=== PATIENT | male | born 1950 | race Caucasian/White ===

== ENCOUNTER 2017-12-13 08:00 | Outpatient (CLI) | payer MEDICARE, OTHER ==
[2017-12-13 18:58] LABS: BASOPHILS % (AUTO) 0.5 %; EOSINOPHILS # (AUTO) 0.6 10^3/uL (0.0-0.7); EOSINOPHILS % (AUTO) 10.8 %; HGB - HEMOGLOBIN 13.7 g/dL (14.0-18.0); LYMPHOCYTES # (AUTO) 0.9 10^3/uL (1.5-3.5); LYMPHOCYTES % (AUTO) 16.5 %; MEAN CORPUSCULAR HEMOGLOBIN 29.1 pg (27.0-31.0); MEAN CORPUSCULAR HGB CONC 32.8 g/dL (32.0-36.0); MEAN CORPUSCULAR VOLUME 88.7 fL (80.0-94.0); MEAN PLATELET VOLUME 9.5 fL (7.4-11.4); MONOCYTES # (AUTO) 0.5 10^3/uL (0.0-1.0); MONOCYTES % (AUTO) 9.1 %; NEUTROPHILS # (AUTO) 3.5 10^3/uL (1.5-6.6); NEUTROPHILS % (AUTO) 63.1 %; PLT - PLATELET COUNT 210 10^3/uL (130-450); RED BLOOD COUNT 4.69 10^6/uL (4.70-6.10); RED CELL DISTRIBUTION WIDTH 14.3 % (12.0-15.0); WHITE BLOOD COUNT 5.6 x10^3/uL (4.8-10.8)
[2017-12-13 19:07] LABS: ALBUMIN 3.7 g/dL (3.2-5.5); BILIRUBIN,DIRECT 0.1 mg/dL (0.1-0.5); BILIRUBIN,TOTAL 0.9 mg/dL (0.2-1.0); TOTAL PROTEIN 7.4 g/dL (6.7-8.2)
== END 2017-12-13 08:01 | disposition home or self-care (01) ==
LOC: LAB.WCP 08:00
PROVIDERS: ATTEND Family Medicine
DX: E03.9 Hypothyroidism, unspecified (principal); R97.20 Elevated prostate specific antigen [PSA]
CPT/HCPCS: 36415; 80076; 81599; 84153; 84443; 85025

== ENCOUNTER 2019-02-05 08:00 | Outpatient (CLI) | payer MEDICARE, OTHER ==
[2019-02-05 14:10] LABS: CALCIUM 9.2 mg/dL (8.5-10.3)
[2019-02-05 14:30] LABS: HB2 TOTAL 14.7 g/dL; HEMOGLOBIN A1C 0.59 g/dL; HEMOGLOBIN A1C % 5.8 % (4.6-6.2)
== END 2019-02-05 23:59 | disposition home or self-care (01) ==
LOC: LAB.WCP 08:00
PROVIDERS: ATTEND Family Medicine
DX: R73.01 Impaired fasting glucose (principal); R97.20 Elevated prostate specific antigen [PSA]
CPT/HCPCS: 36415; 80048; 83036; 84153

== ENCOUNTER 2019-03-04 11:50 | Outpatient (CLI) | payer MEDICARE, OTHER ==
--- NOTE | 2019-03-04 13:14 | XRAY Report ---
Reason: COUGH Procedure Date: 03/04/2019 Accession Number: [id number] / [id number] Procedure: WCP - Chest 2 View X-Ray CPT Code: 18172 FULL RESULT: EXAM: CHEST RADIOGRAPHY EXAM DATE: 03/04/2019 12:04 PM. CLINICAL HISTORY: Cough. COMPARISON: None. TECHNIQUE: 2 views. FINDINGS: Lungs/Pleura: No focal opacities evident. No pleural effusion. No pneumothorax. Flattened diaphragms with prominent lung volumes, possibly obstructive lung disease. Mediastinum: Heart and mediastinal contours are unremarkable. Other: The bones are qualitatively osteopenic; this limits evaluation for underlying fractures or masses. IMPRESSION: No acute airspace disease, likely COPD. RADIA
== END 2019-03-04 11:51 | disposition home or self-care (01) ==
LOC: DI.WCP 11:50
PROVIDERS: ATTEND Family Medicine
DX: R05 Cough (principal); Z51.81 Encounter for therapeutic drug level monitoring; R53.83 Other fatigue
CPT/HCPCS: 36415; 71046; 80053; 84439; 84443; 85025

== ENCOUNTER 2019-03-04 12:28 | Outpatient (CLI) | payer MEDICARE, OTHER ==
[2019-03-04 19:40] LABS: BASOPHILS % (AUTO) 0.5 %; EOSINOPHILS # (AUTO) 0.6 10^3/uL (0.0-0.7); EOSINOPHILS % (AUTO) 13.7 %; HGB - HEMOGLOBIN 13.2 g/dL (14.0-18.0); LYMPHOCYTES # (AUTO) 0.8 10^3/uL (1.5-3.5); MEAN CORPUSCULAR HEMOGLOBIN 28.9 pg (27.0-31.0); MEAN CORPUSCULAR VOLUME 87.6 fL (80.0-94.0); MEAN PLATELET VOLUME 9.9 fL (7.4-11.4); MONOCYTES # (AUTO) 0.6 10^3/uL (0.0-1.0); MONOCYTES % (AUTO) 15.9 %; NEUTROPHILS % (AUTO) 50.9 %; PLT - PLATELET COUNT 189 10^3/uL (130-450); RED BLOOD COUNT 4.55 10^6/uL (4.70-6.10); RED CELL DISTRIBUTION WIDTH 14.9 % (12.0-15.0)
[2019-03-04 20:24] LABS: ALBUMIN 3.7 g/dL (3.2-5.5); ALBUMIN/GLOBULIN RATIO 1.1 (1.0-2.2); BILIRUBIN,TOTAL 0.6 mg/dL (0.2-1.0); CREATININE 1.1 mg/dL (0.6-1.2); TOTAL PROTEIN 7.1 g/dL (6.7-8.2)
[2019-03-04 22:12] LABS: FREE T4 (FREE THYROXINE) 0.72 ng/dL (0.58-1.64)
== END 2019-03-04 12:29 | disposition home or self-care (01) ==
LOC: LAB.WCP 12:28
PROVIDERS: ATTEND Family Medicine
DX: Z51.12 Encounter for antineoplastic immunotherapy (principal); R53.83 Other fatigue; R05 Cough
CPT/HCPCS: 36415; 80053; 84439; 84443; 85025

== ENCOUNTER 2019-03-25 08:00 | Outpatient (CLI) | payer MEDICARE, OTHER | END 2019-03-25 08:01 | disposition home or self-care (01) | LOC: LAB.WCP 08:00 | PROVIDERS: ATTEND Family Medicine | DX: E03.9 Hypothyroidism, unspecified (principal) | CPT/HCPCS: 36415; 84443 ==

== ENCOUNTER 2019-04-15 14:33 | Outpatient (CLI) | payer MEDICARE, OTHER ==
--- NOTE | 2019-04-16 09:51 | CT Report ---
Reason: OROPHARYNGEAL SQUAMOUS CELL CA Procedure Date: 04/15/2019 Accession Number: [id number] / [id number] Procedure: CT - CHEST WO CPT Code: FULL RESULT: EXAM: CT CHEST EXAM DATE: 04/15/2019 02:44 PM. CLINICAL HISTORY: Oropharyngeal squamous cell CA. COMPARISONS: ABDOMEN/PELVIS W/ 03/11/2019 1:05 PM CHEST W/ 03/11/2019 1:05 PM NECK SOFT TISSUE W/ 03/11/2019 1:[address] NECK SOFT TISS W CONT 02/11/2019 12:[address] NECK SOFT TISS W CONT 08/27/2018 11:13 AM PET/CT SKULL BASE TO MID THIGH 07/27/2016 8:35 AM. TECHNIQUE: Routine helical CT imaging was performed through the chest. IV contrast: None. Reconstructions: Coronal and sagittal. In accordance with CT protocol optimization, one or more of the following dose reduction techniques were utilized for this exam: automated exposure control, adjustment of mA and/or KV based on patient size, or use of iterative reconstructive technique. FINDINGS: Thoracic inlet: This area is carefully reviewed and compared to extensive prior imaging as listed above with additional discussion with the neuroradiologist familiar with the patient's imaging history. I am made aware that the patient has been treated at the [facility] and extensively discussed with ENT. The patient is status post right radical neck dissection. On current imaging pretracheal/level 4 and 6 lymph nodes as seen on coronal images 21 and 22 of series 6 are morphologically essentially unchanged dating back to 2016 where the same area was not FDG avid on PET CT. While there is no significant interval change and the appearance may be treatment related, this area is morphologically abnormal and deserves continued attention on followup. The largest lymph node in the area measures up to 1.1 cm in short axis as seen on image 25 series 6. Lungs/Pleura: Previously noted right perifissural nodule is stable, approximately 4 mm on image 32 series 4. There is new nodular consolidation at the left lung base, presumably acute airspace disease. No pleural effusion or pneumothorax. Scarring at the extreme lung apices is presumably related to radiation and unchanged. Mediastinum: Mediastinal lymph nodes have increased in prominence, for example a pretracheal node now measures 0.7 cm in short axis compared to 0.5 cm previously. Similarly, the subcarinal lymph node now measures 2.2 x 1.6 cm compared to 1.9 x 1.2 cm as seen on image 33 series 6 and compared in similar fashion. There is no pericardial effusion. Bones: No aggressive osseous lesions are seen. Visualized Abdomen: Stable hepatic cyst. Other: None. IMPRESSION: New nodular consolidation at the left lung base with interval increase in prominence of mediastinal lymph nodes. Long-term stable prominence of lymph nodes at the thoracic inlet as discussed in detail above. RADIA The call report notification system was initiated by Dr. Derrell Brady at 09:43 AM on 04/16/2019. The above call report findings were discussed with Farideh Desai by Dr. Derrell Brady at 09:46 AM on 04/16/2019.
== END 2019-04-15 14:34 | disposition home or self-care (01) ==
LOC: DI 14:33
PROVIDERS: ATTEND Nurse Practitioner Adult Health
DX: C10.9 Malignant neoplasm of oropharynx, unspecified (principal)
CPT/HCPCS: 71250

== ENCOUNTER 2019-04-16 13:39 | Outpatient (CLI) | payer MEDICARE, OTHER | END 2019-04-16 13:40 | disposition home or self-care (01) | LOC: DI 13:39 | PROVIDERS: ATTEND Nurse Practitioner Adult Health | DX: C14.0 Malignant neoplasm of pharynx, unspecified (principal); R13.10 Dysphagia, unspecified; R06.02 Shortness of breath; R06.00 Dyspnea, unspecified | CPT/HCPCS: 36415; 83880; 93306 ==

== ENCOUNTER 2019-05-15 08:47 | Outpatient (CLI) | payer MEDICARE, OTHER | END 2019-05-15 23:59 | disposition home or self-care (01) | LOC: LAB.WCP 08:47 | PROVIDERS: ATTEND Family Medicine | DX: E29.1 Testicular hypofunction (principal) | CPT/HCPCS: 36415; 84403 ==

== ENCOUNTER 2019-07-22 09:36 | Outpatient (CLI) | payer MEDICARE, OTHER ==
--- NOTE | 2019-07-22 19:34 | CONSULTATION NOTE ---
Palliative Care Consultation - Referral Referring Provider: Dr. Kyrie Moss Time of Visit: 3953-4302 [address]erral setting: [facility] Referral Reason: Recurrent oropharyngeal CA/Goals of Care/Pal Care - Information Sources Records reviewed: Previous records reviewed History/Review of Systems obtained from: Patient, Family ( Hina present for visit) Exam limitations: No limitations - History of Present Illness Brief History of Present Illness: This is a 69-year-old gentleman who was originally diagnosed with oropharyngeal cancer of an unknown primary in 1997, received chemotherapy and concurrent radiation and was on surveillance until recurrence in late 2016. He was found to have a new lesion on the posterior pharynx confirmed to be squamous cell carcinoma. He was told he was not a candidate for further resection or radiation or pro time therapy. He was seen down to [facility], and was started on nivolumab. He had maintained fairly steady and stable disease until his last imaging in April, which showed new nodular consolidation at left base and some increase in mediastinal nodes. Patient's complications have been increased difficulty with oral secretions, and causing him fairly acute episodes of compromised airway. He has been seeing Dr. Kan in ENT, for ongoing debridement. Patient side effects of the his nivolumab have been with a skin rash, he has been on a prednisone taper, but with recurrence of pruritus and rash will restart at 20 mg for 1 week and continue decreasing next week at 15 mg. He has just met with the oncologist. Patient is dependent on PEG tube, does 6 bolus feedings a day as well as fluids. Patient appears quite thin, though reports he is remained fairly weight neutral for the last several months. Patient symptom burden is impacted by his anxiety regarding recurrent airway obstruction, does have some fatigue, denies any pain. Reports mild cognitive and memory issues, but is impacted in the context he needs to continue to work and has multiple financial stressors. These actually stem from his original treatment back in the late , and his 's recent health issues with stage III lung cancer herself. Patient's other past medical history is his BPH, he has a history of melanoma of the right ear, hypothyroidism, and recurrent thrush. 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 Support System: Patient and his have been 43 years this September, they have 2 children and 8 grandchildren, unfortunately they are located in [place] and [place]. They have been weighing consideration regarding moving closer, though do like the weather of [facility]. Patient also has returned to work, this is related to financial stressors. Patient was 22 years in the [employer] and 21 years with [employer]. He currently works at [employer] and has a fairly long commute. His herself is undergone cancer treatment, for stage III lung cancer at [facility], she is coming on four years reports her health is stable though she has multiple stressors coming out of the treatment as well. Family History - Family History Family History: Mother: , Father: Medications/Allergies - Medications Home Medications: Ambulatory Orders Medication Instructions Recorded Confirmed Alfuzosin HCl [Alfuzosin HCl ER] 10 mg PO DAILY 01/07/19 07/22/19 Atorvastatin [Lipitor] 20 mg ORAL DAILY 01/07/19 07/22/19 Levothyroxine Sodium [Synthroid] 100 mcg PO DAILY 01/07/19 07/22/19 Omeprazole 20 mg PO DAILY 01/07/19 07/22/19 Albuterol Sulfate [Proair Hfa 1 - 2 puffs PO Q4HR PRN 03/11/19 07/22/19 Inhaler] Nystatin 100,000 unit PO DAILY 06/15/19 07/22/19 Prednisone 20 tab PO DAILY 06/15/19 07/22/19 - Allergies Allergies/Adverse Reactions: Allergies Allergy/AdvReac Type Severity Reaction Status Date / Time codeine [Codeine] Allergy Mild Rash Verified 07/22/19 09:13 Review of Systems - Constitutional Constitutional: reports: Fatigue, Weight stable. denies: Fever, Chills - Ears, Nose & Throat Ears, Nose & Throat: reports: Hearing loss (worsening), Tinnitus, Sore throat (persistant discomfort since surgery), Hoarseness - Cardiovascular Cardiovascular: reports: Exertional dyspnea, Decr. exercise tolerance - Respiratory Respiratory: reports: Cough, Sputum production (to start neb with saline/going every two weeks to ENT for "debriding" of dried secretions), SOB with exertion. denies: SOB at rest - Gastrointestinal Gastrointestinal: reports: Other (TF with blended food/formula and water). denies: Constipation, Nausea - Genitourinary Genitourinary: reports: Dysuria (yesterday but resovled today), Urgency (recent development), Incontinence - Musculoskeletal Musculoskeletal: reports: Stiffness, Muscle weakness - Integumentary Integumentary: reports: Rash, Pruritis (had improved; recent flare on pred taper restarted at 20 mg), Dryness - Neurological Neurological: reports: General weakness, Memory problems (worsening STM) - Psychiatric Psychiatric: denies: Depression, Anxiety - Hematologic/Lymphatic Hematologic/Lymphatic: reports: Anemia (mild). denies: Recurrent infections - All Other Systems All Other Systems: reports: Reviewed and negative Physical Exam - Physical Exam General Appearance: positive: No acute distress, Alert Eyes Bilateral: positive: Normal inspection ENT: positive: No signs of dehydration, Other (no s/s candidiasis). negative: Pharyngeal erythema, Oral lesions Neck: positive: Trachea midline, Other (scarred right neck disection) Cardiovascular: positive: Regular rate & rhythm Respiratory: positive: No respiratory distress, Diminished in bases. negative: Wheezes Abdomen: positive: Soft, Nml bowel sounds Skin: positive: Pallor, Dryness Extremities: positive: No pedal edema Neurologic/Psychiatric: positive: Oriented x3, Mood/affect nml, Slurred/abnml speech (related to surgical scarring; reports fluctuates) Palliative Care - POLST Patient has POLST: No POLST Status: Full Code Pain: Location (mild residual in area of surgery; no medication needed at this time describes as "discomfort") Tiredness/Fatigue: Mild (1-3) Drowsiness/Sedation: None Nausea: None Depression: None Anxiety: None, Comment (does not have baseline anxiety; though worries about recurrent airway obstruction) Dyspnea: Moderate (4-6) Anorexia: None Sleep: Sleeps well Constipation: No Feelings of wellbeing/Perceived Quality of Life: Good, Acceptable, No change Performance Status: Patient does have fatigue and some activity tolerance, does pace himself. He is able to continue to drive and work. He attends to all his ADLs. - Palliative Care Discussion: Patient is quite pragmatic, denies any depression or anxiety in his approach or living with his cancer. This is actually quite exasperating to his , she reports she is his voice, often he cannot talk because it is too much effort or his voice is not working. She also feels his forgetfulness and his difficulty with hearing often impacts his interpretation of what is shared with them. Today he is quite conversant and able to engage and speak his own thoughts. She does feel overwhelmingly responsible regarding tracking everything, and overseeing his care. She has been quite frustrated with her interaction with the [employer] system, and is weighing benefits and burdens of returning to [facility]. Though this is quite burdensome and travel and time. They do see Dr. Mcdonnell from [facility] as central provider, they have met Dr. Nash and are considering continuing with him as local support, and do want to continue with palliative care no matter which direction they choose. Patient is off Saturday through Saturday, and they try to schedule their appointments accordingly. Patient and do understand patient's treatment is palliative in nature, have not been given any specifics regarding prognosis, but are very much interested in further discussion regarding goals of care and advanced care planning. was not aware that they do have a D POA both for medical care and financial on file, was given copy. This was completed in 1997, was done when they were in [place]. Counseling provided though regarding given the seriousness of his illness, would be important to further define what is most important, priorities, and document decisions around these issues. We did go over the POLST, given patient's high risk for obstruction secondary secretions, this does make this somewhat complicated. There will need to be some nuances discussed in the context of this. We reviewed the multiple stressors they are currently experiencing, as well as resources available and directions to explore to meet some of their needs. Results - Lab Results Lab results reviewed: Yes Impression and Recommendations - Palliative Care Impression: This is a stephenie 69-year-old gentleman who unfortunately has recurrent oral pharyngeal cancer, squamous cell. He is currently receiving nivolumab immunotherapy, with fairly good response though concerned about recent progression. He does have severe dysphasia, difficulty with oral secretions and recurrent obstructive symptoms, as well is dependent on PEG tube. Patient's symptom burden is actually really low, they are experiencing multiple stressors particularly around finances. They do understand treatment is palliative in nature, and interested in further defining goals of care. Palliative care to provide support for ongoing pain and symptom management and anticipatory guidance. Recommendations/Counseling Done: 1. Compromised airway with recurrent crusting. Patient has been prescribed nebulizer with normal saline for moisturizing. They have had trouble obtaining prescription, discussed most likely insurance not to pay for the normal saline ampules, as well as concern related to Medicare rules for nebulizers. Patient does use intermittent albuterol, can order nebulized and get machine ordered and supplement with normal saline ampules. Palliative care team explored various options and presented to , Instructed to contact office if needs further assistance. 2. Dysuria. Patient does have intermittent and ongoing issues regarding BPH, did recommend follow-up with urologist as has been a while. Patient does have an elevated PSA on record. Patient denies any dysuria today, though recommended to contact PCP or palliative care [employer] for [employer] as has not establishe with new PCP, if not improved. Counseling provided regarding management of intermittent incontinence. 3. Anxiety. This is multifactorial in origin, including regarding care team, financial stressors, treatment plan and ongoing psychosocial stressors. Patient has seen multiple oncologist, multiple PCPs, is finding frustration with care fragmentation and worried about communication. Counseling provided regarding normalizing feelings of grief and loss, problem solving regarding frustrations of managing medical team, as well as referral to financial aid officer/counselor to provide support regarding concerns and questions of billing. 4. Advanced care planning. Patient does have a fairly extensive document from original 1998 diagnosis. We did discuss in the context of his current condition, treatment palliative in nature, and wanting to be more proactive regarding defining goals of care. Provided several examples of advanced care planning documents, reviewed intent and form of POLST. Counseling provided regarding ongoing communication regarding this, could particularly since has been helping him navigate with decision-making, she would like more information regarding his priorities and feelings about what is acceptable or not acceptable treatment in the future. Counseling provided regarding the role of palliative care, as well as setting up rapport. Time Spent: 60 minutes with greater than 50% of this done in counseling, coordination of care, and anticipatory guidance. Plan for follow-up in 2 weeks, and then as indicated.
== END 2019-07-22 09:37 | disposition home or self-care (01) ==
LOC: PC 09:36
PROVIDERS: ATTEND Nurse Practitioner Adult Health
DX: Z51.5 Encounter for palliative care (principal); C14.0 Malignant neoplasm of pharynx, unspecified; R07.0 Pain in throat; L27.0 Generalized skin eruption due to drugs and medicaments taken internally; L29.9 Pruritus, unspecified; T45.1X5A Adverse effect of antineoplastic and immunosuppressive drugs, initial encounter; Z93.1 Gastrostomy status; F41.9 Anxiety disorder, unspecified; R53.83 Other fatigue; G31.84 Mild cognitive impairment of uncertain or unknown etiology; R47.02 Dysphasia; J98.8 Other specified respiratory disorders; R30.0 Dysuria; J44.9 Chronic obstructive pulmonary disease, unspecified; E03.9 Hypothyroidism, unspecified; K21.9 Gastro-esophageal reflux disease without esophagitis; N40.1 Benign prostatic hyperplasia with lower urinary tract symptoms; N39.498 Other specified urinary incontinence; R33.8 Other retention of urine; R35.1 Nocturia; R39.15 Urgency of urination; H91.90 Unspecified hearing loss, unspecified ear; H93.19 Tinnitus, unspecified ear; Z85.820 Personal history of malignant melanoma of skin; Z79.51 Long term (current) use of inhaled steroids; Z79.52 Long term (current) use of systemic steroids
CPT/HCPCS: 99205

== ENCOUNTER 2019-07-29 11:05 | Outpatient (CLI) | payer MEDICARE, OTHER ==
--- NOTE | 2019-07-29 19:40 | CONSULTATION NOTE ---
Palliative Care Follow Up - Referral Referring Provider: Dr. Duke Nash oncology/Dr. 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 His original diagnosis was actually an oropharyngeal cancer with an unknown primary 1998, for which she received chemotherapy and concurrent radiation. He is currently on nivolumab every 4 weeks, and is due for restaging scans in the next couple weeks. He is managed by [facility], Dr. Susanna Mcdonnell, and is trying to receive some of his therapy more locally close to home. Patient's care is complicated by the difficulty he has with oral secretions, which has caused him in the last 4 months episodes of compromised airway. These have improved dramatically with the implementation of regular oral suctioning, And regular visits with Dr. Kan ENT for ongoing debridement. Reports cough is improved dramatically, he is not accumulating secretions in the back of his thr oat, he denies any increase in wheezing or difficulty with breathing. They have not obtained the nebulizer for moisturizing, his has been concerned as he is not using humidifier. Patient feels like overall he is happy with his current condition regarding management of his airway. Patient's perception is he is doing much better, he is doing fairly well as he is independent in his own care, has a PEG tube as he has severe dyshagia, and continues to work several days a week. Hina his , is very distressed and anxious, worried about patient's compliance and risk for airway obstruction, and requested to meet again with palliative care to discuss and address her concerns and facilitate further conversation regarding this. 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 Social History - Living Situation Living arrangement: At home Living Situation: With spouse/s.o. Support System: Patient is have been 43 years, they have 2 children though they are not close by. They have 1 daughter who is a nurse, and relies on for significant amount of information. They have a significant financial stressors, his is undergoing significant health problems related to her self that adds to the complexity of the situation. She would like to move closer to her children, but feels overwhelmed and unable to prepare the house to sell if needed. Medications/Allergies - Medications Home Medications: Ambulatory Orders Medication Instructions Recorded Confirmed Alfuzosin HCl [Alfuzosin HCl ER] 10 mg PO DAILY 01/07/19 07/29/19 Atorvastatin [Lipitor] 20 mg ORAL DAILY 01/07/19 07/29/19 Levothyroxine Sodium [Synthroid] 100 mcg PO DAILY 01/07/19 07/29/19 Omeprazole 20 mg PO DAILY 01/07/19 07/29/19 Albuterol Sulfate [Proair Hfa 1 - 2 puffs PO Q4HR PRN 03/11/19 07/29/19 Inhaler] Nystatin 100,000 unit PO DAILY 06/15/19 07/29/19 Prednisone 15 tab PO DAILY 06/15/19 07/29/19 Guaifenesin [Tussin] 5 ml PO Q4HR PRN 07/29/19 07/29/19 - Allergies Allergies/Adverse Reactions: Allergies Allergy/AdvReac Type Severity Reaction Status Date / Time codeine [Codeine] Allergy Mild Rash Verified 07/22/19 09:13 Review of Systems - Constitutional Constitutional: reports: Fatigue, Weight stable. denies: Fever, Chills - Ears, Nose & Throat Ears, Nose & Throat: reports: Hearing loss, Tinnitus, Postnasal drainage, Sore throat, Mouth lesions, Dental decay, Dry mouth - Cardiovascular Cardiovascular: reports: Decr. exercise tolerance. denies: Chest pain - Respiratory Respiratory: reports: Cough (improved; occasional), Wheezing (intermittent but improved), SOB with exertion. denies: SOB at rest - Gastrointestinal Gastrointestinal: reports: Other (Bolus feedings; monitors water with watching density of urine; tries to keep light yellow). denies: Constipation - Genitourinary Genitourinary: reports: Frequency, Urgency, Incontinence. denies: Dysuria - Musculoskeletal Musculoskeletal: reports: Stiffness - Integumentary Integumentary: reports: Rash (on chest still not resolved), Pruritis, Dryness - Neurological Neurological: reports: Memory problems - Psychiatric Psychiatric: denies: Depression, Anxiety - Hematologic/Lymphatic Hematologic/Lymphatic: reports: Anemia (12.0 hgb) - All Other Systems All Other Systems: reports: Reviewed and negative Physical Exam - Vital Signs Temperature: 36.9 C Pulse Rate: 83 Respiratory Rate: 18 O2 Saturation: 99 (ra @ rest) Blood Pressure: 113/69 - Physical Exam General Appearance: positive: No acute distress, Alert Eyes Bilateral: positive: Normal inspection ENT: positive: No signs of dehydration, Other (thickened yellow secretions back of throat). negative: Pharyngeal erythema Neck: positive: No JVD, Other (scarring from previous surgery) Cardiovascular: positive: Regular rate & rhythm Respiratory: positive: No respiratory distress, Diminished in bases. negative: Wheezes, Rales, Rhonchi Abdomen: positive: Soft, Nml bowel sounds, Distended, Other ("button" for TF) Skin: positive: Dryness, Rash (diffuse rash remains upper chest) Extremities: positive: Full ROM. negative: Pedal edema Neurologic/Psychiatric: positive: Oriented x3, Mood/affect nml, Slurred/abnml speech (due to mechanical surgery changes), Flat affect Palliative Care - POLST Patient has POLST: No POLST Status: Full Code Pain: Pain unchanged, Location (neck and throat area; does not feel meets threshold for medication;) Tiredness/Fatigue: Mild (1-3) Drowsiness/Sedation: Mild (1-3) Nausea: None Depression: None Anxiety: None Dyspnea: Mild (1-3) Anorexia: None Sleep: Variable sleep pattern (up at night to urinate; suctions when up) Constipation: No Feelings of wellbeing/Perceived Quality of Life: Good, Acceptable, Improved Performance Status: Patient is independent in ADLs, is still able to work and drive. Because of the long days, he is unable to really participate much in supporting household task s. Very focused on trying to maintain an keep some income coming in. - Palliative Care Discussion: Patient was somewhat taken it back, felt somewhat "gaona whacked" by his 's escalating anxiety. Does appear she been talking at length to his daughter who is a nurse, and Hina had significant number of concerns and high anxiety. She felt like the conversation needed to be mediated. Counseling provided regarding normalizing a complicated dynamics of communication, particularly under their current circumstances. presents with high anxiety over patient's risk for obstruction, she feels he is too nonchalant. Patient worries some about sharing concerns or symptoms with , as she gets quite anxious and feels she "overreacts". Did acknowledge that 's own severe health problems, have been impacting how she is coping with the current situation. He to is quite concerned about her health. One of 's concerns, is patient's high risk for obstruction, and possible need for tracheostomy for progressive disease. Patient is aware it may be a necessary intervention in the future, if has obstructed airway, is concerned it may be an acute intervention. Patient quite clear would like to avoid if at all possible, and for as long as possible. This possibility causes Hina quite a bit of distress, addressed some of her misconceptions regarding tracheostomy, and helped patient acknowledge 's concern. Reviewed scans pending, and can continue to monitor risk regarding this, though certainly cannot address if patient has obstructive airway from secretions. Tried to refocus patient is doing much better with this, getting ongoing monitoring including ENT visit tomorrow, and encouraged patient to continue with decreasing his risk factors to help ameliorate some of Hina's concerns. 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 He is due for restaging scans, and follow-up with ENT tomorrow. His management of oral secretions and recurrent obstructive symptoms has improved. presents with escalating anxiety regarding patient's condition, as well as their ongoing financial stressors, and her concern is supporting him with her multiple health problems as well. Palliative care providing support for navigating his complex situation, providing psychosocial support and symptom management. Palliative Care will continue to explore goals of care and anticipatory guidance. Recommendations/Counseling Done: 1. Compromised airway with recurrent crusting. Patient perceives frequent suctioning has decreased oral secretions. He has been bringing to work, suctioning through the day, as well as when up at night to void. He does feel like he has had some increase in thickened secretions, attributes this to possible candidiasis, and has reinstated nystatin currently he is at high risk given his dosing of prednisone and compromised immune system. frustrated with him regarding not using humidifier at night, patient reports just forgets at times, will try to be more compliant. Concerned about leaving it on all night when water runs out. Patient not convinced wants nebulizer with mask, did provide information on nebulizer that can buy independently as low cost, as well as reinforced information regarding obtaining sterile saline. Has not heard from [employer] if will cover, information I received this Medicare would not pay. I have resent prescription. Reviewed if going to obtain, to use prior to bedtime, and again during the night to keep airway moist. 2. Rash secondary immunotherapy. Patient is completed his 1 week of 20 mg, with only mild improvement. He is using some topical hydrocortisone as well as his steroids. Patient with dry flaky skin, counseling provided regarding skin care. Patient currently on prednisone 15 mg daily, if worsens will contact oncology or myself may need to go back to 20. 3. Urinary urgency. Patient's had no recurrence of dysuria, is up frequently at night but does have high fluid intake. Does feel like he is emptying his bladder, but does have some urgency. Discussed given the impact particularly at work, would recommend follow-up with urology. Interventions provided last time, are working better for management of intermittent incontinence. 4. Caregiver fatigue. Patient presents with severe high anxiety, patient is quite pragmatic in his approach and her concern about downplaying symptoms, is he is putting himself at high risk. Counseling provided to negotiate between the 2, 's concerns, support patient and his goals, and acknowledged the difficulty of their current situation. 5. Advanced care planning. Given the complexity of today's conversation and anxiety, explored what was most important and concern to , regarding issue of tracheostomy. Patient does have a fairly extensive document from 1997, will further explore and continue to define goals of care and follow-up meetings. Patient's hope is to avoid tracheostomy in the future, but aware it may become a reality, addressed questions and concerns is able to from current vantage point. Encouraged to ask questions with providers to better understand risks/benefits and timing when opportunity presents. Time Spent: 60 minutes with greater than 50% of this done in counseling regarding multiple concerns and anxiety, coordination of care with oncology team as well as anticipatory guidance.Plan to see patient in follow-up after scans and [facility] appointment in early August.
== END 2019-07-29 11:06 | disposition home or self-care (01) ==
LOC: PC 11:05
PROVIDERS: ATTEND Nurse Practitioner Adult Health
DX: Z51.5 Encounter for palliative care (principal); C14.0 Malignant neoplasm of pharynx, unspecified; R13.10 Dysphagia, unspecified; Z93.1 Gastrostomy status; J44.9 Chronic obstructive pulmonary disease, unspecified; F06.8 Other specified mental disorders due to known physiological condition; E03.9 Hypothyroidism, unspecified; K21.9 Gastro-esophageal reflux disease without esophagitis; N40.1 Benign prostatic hyperplasia with lower urinary tract symptoms; R33.8 Other retention of urine; R32 Unspecified urinary incontinence; R35.0 Frequency of micturition; R39.15 Urgency of urination; M91.90 Juvenile osteochondrosis of hip and pelvis, unspecified, unspecified leg; L27.0 Generalized skin eruption due to drugs and medicaments taken internally; T45.1X5A Adverse effect of antineoplastic and immunosuppressive drugs, initial encounter; H91.90 Unspecified hearing loss, unspecified ear; Z79.51 Long term (current) use of inhaled steroids; Z79.52 Long term (current) use of systemic steroids; Z79.899 Other long term (current) drug therapy
CPT/HCPCS: 99215

== ENCOUNTER 2019-08-07 07:49 | Outpatient (CLI) | payer MEDICARE, OTHER ==
[2019-08-07 08:22] LABS: CALCIUM 9.4 mg/dL (8.5-10.3); CREATININE 0.8 mg/dL (0.6-1.2)
[2019-08-07] MEDS ORDERED: IOVERSOL 320 100 ML VIAL IVP ONE (08:57)
--- NOTE | 2019-08-07 09:38 | CT Report ---
Reason: MALIGNANT NEOPLASM OF HEAD,FACE,NECK,RESTAGING Procedure Date: 08/07/2019 Accession Number: [id number] / [id number] Procedure: CT - SOFT TISSUE NECK W CPT Code: FULL RESULT: EXAM: CT SOFT TISSUE NECK WITH CONTRAST. EXAM DATE: 08/07/2019 08:51 AM. HISTORY: 69-year-old male with history of TxN2B oropharyngeal cancer first diagnosed [id number]. History of level II-level V right-sided modified radical neck dissection. Positive level II and level V lymph nodes treated with adjuvant chemoradiation. History of biopsy of right posterior oropharyngeal wall in January 2018 with findings suspicious but not clearly diagnostic for squamous cell carcinoma. COMPARISONS: CHEST W/O 04/15/2019 2:41 PM NECK SOFT TISSUE W/ 03/11/2019 1:05 PM. TECHNIQUE: Routine soft tissue neck CT protocol with contrast. Reconstructions: Coronal and sagittal. IV contrast: OPTI 320 80 mL. In accordance with CT protocol optimization, one or more of the following dose reduction techniques were utilized for this exam: automated exposure control, adjustment of mA and/or KV based on patient size, or use of iterative reconstructive technique. FINDINGS: Again demonstrated are changes of previous right-sided neck dissection. The right submandibular gland is surgically absent. In addition, the right sternocleidomastoid muscle and right internal jugular vein are surgically absent. Again noted is quite marked asymmetric volume loss in the right trapezius muscle, presumably secondary to denervation following injury or resection of the right accessory nerve. There is no evidence of developing lymphadenopathy in the right or left neck. There has been interval decrease in size of left level 1A lymph nodes. The more anterior of the 2 nodes is barely visible at this time. The larger, more posterior of the 2 lymph nodes now measures about 5.8 x 5 mm, decreased from about 9 x 7.5 mm on the previous examination. Again demonstrated is a region of apparent asymmetric, soft tissue thickening along the posterior lateral oropharyngeal wall on the right in the vicinity of the glossotonsillar sulcus measuring roughly 1.5 cm maximal AP roughly 1.1 cm maximal transverse (image 22 of series #3), stable. Again demonstrated is asymmetric effacement of the right vallecula, essentially unchanged. Previously demonstrated mild diffuse swelling of the supraglottic soft tissues (likely reflecting posttreatment change) is less prominent on the current examination. Again demonstrated is fatty infiltration and atrophy of the right side of the oral tongue, unchanged. A small amount of relatively hyperattenuating tissue is identified in the left paratracheal space (image 38 of series #3) possibly representing a small amount of residual thyroid tissue, unchanged. More caudad overlying the anterior surface of the trachea at the level of the thoracic inlet, there is a small (roughly 6 mm AP by 9 mm transverse and 7 mm craniocaudad) soft tissue density nodule. This has shown definite interval decrease in size. Previously it measured about 10 x 16 x 9 mm. This presumably represents a lymph node. There is atherosclerotic disease at the carotid bifurcations bilaterally without significant associated carotid artery stenosis. The vertebral arteries appear patent. The left internal jugular vein appears patent. Again demonstrated are fairly advanced degenerative changes in the upper/mid cervical spine, similar to the prior study. There is no atlanto-occipital assimilation. Again demonstrated is significant basilar invagination. The distal tip of the dens now lies about 8.8 mm above [place]'s line compared to about 7.4 mm on the prior study. There is no definite associated impingement of the lower brainstem. The regional bony structures are otherwise unremarkable. No lytic or destructive bone lesion is demonstrated. The middle ear cavities and mastoid air cells are essentially clear. The paranasal sinuses are essentially clear. No mass is identified in either orbit. No obvious acute pathology is seen in the imaged brain. For evaluation of the imaged upper chest, please refer to the patient's chest CT performed at same visit but dictated separately. IMPRESSION: 1. Posttreatment changes are again demonstrated as described. 2. A region of asymmetric soft tissue fullness is again demonstrated along the posterolateral oropharyngeal wall on the right in the vicinity of the glossotonsillar sulcus, unchanged. 3. Interval reduction in size of previously demonstrated left-sided, level 1A lymph nodes. 4. Interval decrease in size of soft tissue density nodule anterior to the trachea at the thoracic inlet, presumably a pretracheal lymph node. 5. No new lymphadenopathy is demonstrated. 6. Again demonstrated is occipitoatlantal assimilation. In addition, again demonstrated is basilar invagination. The basilar invagination has progressed. The tip of the dens now projects about 8.8 mm above [place]'s line compared to about 7.4 mm on the prior examination. There is no apparent impingement of the lower brainstem. 7. No other significant interval change when compared to prior study 03/11/2019.
--- NOTE | 2019-08-07 16:49 | CT Report ---
Reason: MALIGNANT NEOPLASM OF HEAD,FACE,NECK,RESTAGING Procedure Date: 08/07/2019 Accession Number: [id number] / [id number] Procedure: CT - CHEST W CPT Code: FULL RESULT: EXAM: CHEST W DATE: 08/07/2019 8:51 AM CLINICAL HISTORY: MALIGNANT NEOPLASM OF HEAD,FACE,NECK,RESTAGING COMPARISON: CT chest 04/15/[address] chest and CT neck 03/11/2019. TECHNIQUE: Routine helical CT imaging was performed through the chest. IV contrast: 80 mL of Optiray 320 Reconstructions: Coronal and sagittal. In accordance with CT protocol optimization, one or more of the following dose reduction techniques were utilized for this exam: automated exposure control, adjustment of mA and/or KV based on patient size, or use of iterative reconstructive technique. FINDINGS: Thoracic inlet: Previously followed soft tissue nodule/lymph nodes appear stable with no interval enlargement. Lungs/Pleura: Apical postradiation changes are stable. No new or suspicious lung nodules are detected. The previously followed right lung nodule is not definitely redemonstrated. Previously seen acute airspace disease at the left lung base is essentially resolved with a small amount of interstitial thickening at the lung base likely representing scarring. There is no pleural effusion or pneumothorax. Mediastinum: Small mediastinal lymph nodes not meeting size criteria have decreased in prominence. There is no hilar lymphadenopathy. There is no pericardial effusion. Bones: No aggressive osseous lesions are visualized. Visualized Abdomen: Hepatic simple cysts as well as hepatic hypodensity which is too small to characterize are noted. Other: None. IMPRESSION: No convincing evidence of recurrent disease. Interval improvement in previously seen acute left lower lung airspace disease. [facility]
== END 2019-08-07 07:50 | disposition home or self-care (01) ==
LOC: LAB 07:49
PROVIDERS: ATTEND Physician Assistant Medical
DX: C76.0 Malignant neoplasm of head, face and neck (principal)
CPT/HCPCS: 36415; 70491; 71260; 80048; Q9967

== ENCOUNTER 2019-09-03 13:49 | Emergency (ER) | payer MEDICARE, OTHER ==
[2019-09-03 14:04] VITALS: BP 130/76
--- NOTE | 2019-09-03 14:12 | ED Physician Documentation ---
PD HPI SKIN - Stated complaint Stated Complaint: ALLERGIC REACTION - Chief complaint Chief Complaint: Wound - History obtained from History obtained from: Patient, Family - History of Present Illness Timing - onset: Yesterday (69-year-old gentleman with recurrent oropharyngeal cancer, he is been dealing with it since 1997. Since last March he has been on nivolumab infusions. His last infusion was August 12. Since March of this year he had a mild rash for which he is been on varying doses of prednisone, currently at 30 mg a day. Since yesterday the rash has been much worse and more painful.He is been on Keflex since yesterday prescribed by [facility]. He denies any fevers.) Review of Systems Ten Systems: 10 systems reviewed and negative Constitutional: reports: Fatigue. denies: Fever, Chills Cardiac: denies: Chest pain / pressure, Palpitations Respiratory: denies: Dyspnea, Cough PD PAST MEDICAL HISTORY - Past Medical History Cardiovascular: High cholesterol Respiratory: COPD, Shortness of breath Neuro: Other Endocrine/Autoimmune: HyPOthyroidism GI: GERD : Benign prostate hypertrophy, Retention, Incontinence, Nocturia HEENT: Other Psych: None Musculoskeletal: Osteoarthritis Derm: Other - Past Surgical History Past Surgical History: Yes General: Colonoscopy, EGD, Other Ortho: Arthroscopic surgery, Other Neuro: Other HEENT: Tonsil/Adenoidectomy Derm: Skin cancer surgery - Present Medications Home Medications: Ambulatory Orders Medication Instructions Recorded Confirmed Alfuzosin HCl [Alfuzosin HCl ER] 10 mg PO DAILY 01/07/19 09/03/19 Atorvastatin [Lipitor] 20 mg ORAL DAILY 01/07/19 09/03/19 Levothyroxine Sodium [Synthroid] 100 mcg PO DAILY 01/07/19 09/03/19 Omeprazole 20 mg PO DAILY 01/07/19 09/03/19 Nystatin 100,000 unit PO DAILY 06/15/19 09/03/19 Prednisone 30 tab PO DAILY 06/15/19 09/03/19 Cephalexin [Keflex] 500 mg PO QID 09/03/19 09/03/19 predniSONE [Prednisone] 4 tab PO DAILY #40 tablet 09/03/19 - Allergies Allergies/Adverse Reactions: Allergies Allergy/AdvReac Type Severity Reaction Status Date / Time codeine [Codeine] Allergy Mild Rash Verified 09/03/19 14:01 - Living Situation Living Situation: reports: With spouse/s.o. - Social History Does the pt smoke?: No Smoking Status: Never smoker Does the pt drink ETOH?: No - Family History Family history: reports: Non contributory - Immunizations Immunizations are current?: No Immunizations: TDAP >10years/unknown - POLST Patient has POLST: No PD ED PE NORMAL - Vitals Vital signs reviewed: Yes - General General: Alert and oriented X 3, No acute distress - HEENT HEENT: PERRL, EOMI, Other (Sequela of radical neck dissection) - Neck Neck: Supple, no meningeal sign, No bony TTP - Cardiac Cardiac: RRR, No murmur - Respiratory Respiratory: No respiratory distress, Clear bilaterally - Abdomen Abdomen: Other (PEG tube on the left side with some lesions around it.) - Back Back: No CVA TTP, No spinal TTP - Derm Derm: Other (He has a widespread bullous rash that seems most prominent on the arms and around the groin. In the groin there are large bullae measuring 3 cm around. There are multiple popped bullae on the chest. On the back there is one with just a bit of purulent drainage but no cellulitis.) - Neuro Neuro: Alert and oriented X 3, Normal speech Results - Vitals Vitals: Vital Signs - 24 hr 09/03/19 14:01 Temperature 36.6 C Heart Rate 92 Respiratory 20 Rate Blood Pressure 130/76 O2 Saturation 96 Oxygen O2 Source Room air - Labs Labs: Laboratory Tests 09/03/19 09/03/19 14:19 14:19 WBC 13.9 H RBC 4.66 L Hgb 14.2 Hct 42.5 MCV 91.2 MCH 30.5 MCHC 33.4 RDW 15.2 H Plt Count 212 MPV 10.9 Neut # (Auto) 12.5 H Lymph # (Auto) 0.3 L Bradley # (Auto) 0.7 Eos # (Auto) 0.3 Baso # (Auto) 0.0 Absolute Nucleated RBC 0.00 Nucleated RBC % 0.0 Sodium 135 Potassium 4.4 Chloride 101 Carbon Dioxide 26 Anion Gap 8.0 BUN 36 H Creatinine 1.0 Estimated GFR (MDRD) 74 L Glucose 157 H Calcium 9.0 Total Bilirubin 1.0 AST 18 ALT 24 Alkaline Phosphatase 45 Total Protein 6.3 L Albumin 3.5 Globulin 2.8 Albumin/Globulin Ratio 1.3 Lipase 49 PD MEDICAL DECISION MAKING - ED course ED course: 69-year-old gentleman with recurrent oropharyngeal cancer on nivolumab presents with a worsening rash. Its acutely worse over the last day and has been resistant to outpatient treatment with prednisone and Keflex. Of note he did get a flu shot last week, I do not know if the immune combination would have flared this up. His last infusion was on August 12. With his permission the rash was photographed and emailed to the [facility] for consult. Subsequent to that I spoke with his oncologist, Dr. Mcdonnell. She did feel that the rash is from the nivolumab. They will assess whether or not they should continue that going forward. In the interim she would like me to give him Solu-Medrol here and up his prednisone to 80 mg a day pending follow-up. Patient and family comfortable with that plan and happy that they do not have to go to [place] today. He was advised that if he worsens or develops a fever though he needs immediate reevaluation either here or there. Departure - Departure Disposition: 01 Home, Self Care Clinical Impression: Bullous dermatitis Condition: Good Record reviewed to determine appropriate education?: Yes Prescriptions: predniSONE [Prednisone] 4 tab PO DAILY #40 tablet Comments: As discussed, Dr. Mcdonnell would like you to take 80 mg of prednisone a day until she reaches out to you. She should reach out to you soon. Return for new or worsening symptoms, or seek evaluation in [place] immediately especially if you run a fever. Forms: Activity restrictions
[2019-09-03 14:29] LABS: BASOPHILS % (AUTO) 0.2 %; EOSINOPHILS # (AUTO) 0.3 10^3/uL (0.0-0.7); EOSINOPHILS % (AUTO) 2.1 %; HGB - HEMOGLOBIN 14.2 g/dL (14.0-18.0); LYMPHOCYTES # (AUTO) 0.3 10^3/uL (1.5-3.5); LYMPHOCYTES % (AUTO) 2.4 %; MEAN CORPUSCULAR HEMOGLOBIN 30.5 pg (27.0-31.0); MEAN CORPUSCULAR HGB CONC 33.4 g/dL (32.0-36.0); MEAN CORPUSCULAR VOLUME 91.2 fL (80.0-94.0); MEAN PLATELET VOLUME 10.9 fL (7.4-11.4); MONOCYTES # (AUTO) 0.7 10^3/uL (0.0-1.0); NEUTROPHILS # (AUTO) 12.5 10^3/uL (1.5-6.6); NEUTROPHILS % (AUTO) 89.4 %; PLT - PLATELET COUNT 212 10^3/uL (130-450); RED BLOOD COUNT 4.66 10^6/uL (4.70-6.10); RED CELL DISTRIBUTION WIDTH 15.2 % (12.0-15.0); WHITE BLOOD COUNT 13.9 x10^3/uL (4.8-10.8)
[2019-09-03] MEDS ORDERED: methylPREDNISolone SUCCINATE 125 MG/2 ML VIAL IVP STA (14:33)
[2019-09-03 14:37] LABS: ALBUMIN 3.5 g/dL (3.2-5.5); ALBUMIN/GLOBULIN RATIO 1.3 (1.0-2.2); TOTAL PROTEIN 6.3 g/dL (6.7-8.2)
== END 2019-09-03 15:25 | disposition home or self-care (01) ==
LOC: ED 13:49
DX: L13.8 Other specified bullous disorders (principal); T45.1X5A Adverse effect of antineoplastic and immunosuppressive drugs, initial encounter; C10.9 Malignant neoplasm of oropharynx, unspecified; Z93.1 Gastrostomy status
CPT/HCPCS: 36415; 80053; 83690; 85025; 96374; 99284

== ENCOUNTER 2019-09-09 11:17 | Outpatient (CLI) | payer MEDICARE, OTHER ==
--- NOTE | 2019-09-09 16:28 | CONSULTATION NOTE ---
Palliative Care Follow Up - Referral Referring Provider: Dr. 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 His original diagnosis was actually a oral pharyngeal cancer with an unknown primary 1998, for which he had received chemotherapy and concurrent radiation as well as radical neck dissection. He has been currently on nivolumab every 4 weeks, has recently had some restaging scans I do not know the outcome though reports has had good response, he has been trying to coordinate care to bring it closer to home as they do have significant financial stressors including money for travel. He originally and has been ongoing managed by [facility], Dr. Susanna Mcdonnell, and received his last nivolumab infusion on 08/12. Patient had developed a diffuse rash, has been on prednisone, has been fairly low-grade but now with his last treatment had a severe skin reaction. He presents with probably 50% of his body covered with rash, particularly of note are his severe large blisters mostly localized on his upper thighs, groin, his right arm is the worst, and down his bilateral arms with blisters now forming at his hands. He was seen in the emergency department on 09/03 with escalation of his prednisone. Did receive some Solu-Medrol, and was discharged on prednisone 80 mg. He does have an appointment on Saturday with dermatology a [facility], but in meantime 's assistance with dressing change as well as supplies to make it until that visit. She is quite concerned of infection, patient has been on Keflex since 09/03. Patient himself is mildly distressed but not as worried as his , which has created some tension between the 2 of them. On examination of blisters, does appear rash across the chest is fading, blisters that have opened are drying no signs or symptoms of infection on top of this, he has a very vague diffuse rash across his back. He does have quite a bit of erythema in his right arm and elbow area, and new blisters forming on his hands. He reports his experiences wherever he itches, then blisters formed. Of note he did get a flu vacs, which appeared to have triggered in his mind the severity of the reaction. He does report severe pruritus, the prednisone is helped some, he has not tried Benadryl. He denies the need for pain medication, but was encouraged to at least try some ibuprofen and/or acetaminophen. He declined prescription for opioids. Patient also presents with increased halitosis, oral secretions are quite severe and thick, I suspect with antibiotics and prednisone, he has increased candidiasis though it is difficult to differentiate in his mouth currently. Patient is unable to swallow, he is supported by tube feedings, he has not had his feeding this morning or much water, and presents his hypotensive. Past medical history includes hypercholesteremia, COPD, mild cognitive short- term memory issues, hypothyroidism, GERD, BPH with history of retention, incontinence, osteoarthritis. Social History - Living Situation Living arrangement: At home Living Situation: With spouse/s.o. Support System: Patient has continued to try and work his shifts at [employer], he has not been able to this last week. This is adding more stressors for him as he will not be able to keep his job and or insurance. herself has underlying lung cancer, is somewhat overwrought and overwhelmed with this last complication. She went to buy dressings and it was close to 60 $70, which they do not have, they are at risk for losing their home. They do not have much social support, she does have a daughter who is a nurse, who provides her with a significant amount of information. Medications/Allergies - Medications Home Medications: Ambulatory Orders Medication Instructions Recorded Confirmed Alfuzosin HCl [Alfuzosin HCl ER] 10 mg PO DAILY 01/07/19 09/09/19 Atorvastatin [Lipitor] 20 mg ORAL DAILY 01/07/19 09/09/19 Levothyroxine Sodium [Synthroid] 100 mcg PO DAILY 01/07/19 09/09/19 Omeprazole 20 mg PO BID 01/07/19 09/09/19 Nystatin 100,000 unit PO QID 06/15/19 09/09/19 Cephalexin [Keflex] 500 mg PO QID 09/03/19 09/09/19 Guaifenesin [Tussin] 400 mg PO QID PRN 09/09/19 09/09/19 predniSONE [Prednisone] 80 mg PO DAILY 09/09/19 09/09/19 - Allergies Allergies/Adverse Reactions: Allergies Allergy/AdvReac Type Severity Reaction Status Date / Time codeine [Codeine] Allergy Mild Rash Verified 09/03/19 14:01 Review of Systems - Constitutional Constitutional: reports: Fatigue. denies: Fever, Chills - Eyes Eyes: reports: Vision loss - Ears, Nose & Throat Ears, Nose & Throat: reports: Hearing loss, Tinnitus, Nasal congestion, Hoarseness, Dry mouth, Other (thickened secretions) - Cardiovascular Cardiovascular: reports: Lightheadedness, Decr. exercise tolerance - Respiratory Respiratory: reports: Cough, Sputum production, Wheezing (had some mucous plugs with severe distress over weekend), SOB with exertion. denies: SOB at rest - Gastrointestinal Gastrointestinal: reports: Reflux/heartburn. denies: Nausea - Genitourinary Genitourinary: reports: Frequency, Urgency, Incontinence - Musculoskeletal Musculoskeletal: reports: Muscle weakness - Integumentary Integumentary: reports: Rash, Pruritis, Lesions, Dryness - Neurological Neurological: reports: General weakness, Memory problems, Slurred speech (mechanical) - Psychiatric Psychiatric: reports: Depression - Hematologic/Lymphatic Hematologic/Lymphatic: denies: Recurrent infections - All Other Systems All Other Systems: reports: Reviewed and negative Physical Exam - Vital Signs Temperature: 36.5 C Pulse Rate: 86 Respiratory Rate: 18 Blood Pressure: 81/50 - Physical Exam General Appearance: positive: Mild distress (with itching) Eyes Bilateral: positive: Other (conjunctivae reddened; eyes watery; denies change or pain) ENT: positive: Other (severe halotosis). negative: ENT inspection nml (poor dentition; thickened oral secretions reports did not suction this am;), Oral lesions Neck: positive: Trachea midline, Other (right neck dissection) Cardiovascular: positive: Regular rate & rhythm Respiratory: positive: No respiratory distress, Diminished in bases. negative: Wheezes Abdomen: positive: Soft, Distended, Other (PEG site exit) Skin: positive: Pallor, Pruritis, Rash (see HPI), Wound (many open blisters but on inspection none draining; had just showered) Extremities: positive: No pedal edema Neurologic/Psychiatric: positive: Oriented x3, Mood/affect nml, Weakness, Slurred/abnml speech (mechanical), Flat affect, Other (voice soft/hoarse) Palliative Care - POLST Patient has POLST: No POLST Status: Full Code Pain: Pain worsening, Location (arms mostly; worsened with shower "raw nerve endings" reports at rest now /10. Does not want to take pain meds) Tiredness/Fatigue: Moderate (4-6) Drowsiness/Sedation: Mild (1-3) Nausea: None Depression: None Anxiety: None Dyspnea: Moderate (4-6) Anorexia: None Sleep: Variable sleep pattern (has been difficult with prednison / rash) Constipation: No Feelings of wellbeing/Perceived Quality of Life: Fair, Worsening Performance Status: Patient is feeling somewhat weak, and some dizziness with his hypotension. He is managing his ADLs, he does want to return to work but currently would be difficult given his lack of stamina and concern for infection. - Palliative Care Discussion: He continues to be quite a bit of tension between and patient, she does not feel he takes things serious enough, he thinks she over reacts. Negotiating between the 2 of them, and coming up with a compromise regarding their current situation. Patient is having more trouble with his secretions and this is quite unnerving for Hina, worried about obstruction. He just saw the ENT, and was having some difficulty already. Patient worried will have no further intervention regarding his cancer therapy, did discuss in the context of immunotherapy he has been on it long-term, we do not often know how much is enough, and would expect since it has been effective may still continue to benefit for any months to even years ahead. Encouraged him to talk to the oncologist, regarding his concerns. Impression and Recommendations - Palliative Care Impression: This is a 69-year-old gentleman with recurrent squamous cell carcinoma the posterior pharynx, recently treated with nivolumab and has presented with grade 4 skin reaction. He continues to have difficulty with management of his oral secretions, and concern for recurrent obstructive symptoms. Palliative care providing support for navigating again his complex situation, providing psychosocial support and symptom management. Recommendations/Counseling Done: 1. Grade 4 skin rash secondary to immunotherapy. Patient was examined and no acute signs or symptoms of infective lesions or blisters, there was nothing to culture at this point in time. Does appear to be responding, though still keeps presenting with new blisters now on his hands. He is due to see dermatology on Saturday. Counseling provided regarding management of side effects of prednisone, is quite irritable and anxious, but is managing to sleep. Recommended trialing the Benadryl, to see if this adds to his comfort, and use ibuprofen/acetaminophen for discomfort. If patient to present with fever or chills, or purulent drainage on any of his blisters, he is to seek more urgent/emergent care. Dressings were changed and areas cleansed. Did provide dressings available, did discuss if patient without open areas, could wear a clean cotton close for protection. 2. Compromised airway with recurrent crusting. Patient has not been able to do much suctioning, with his current condition. He continues with thickened secretions. Reviewed recommendations to continue with humidifier more aggressively, nebulizer was not covered by insurance, but does have alternative encouraged to follow-up. Reviewed use of Mucinex to help thin secretions, though patient has difficulty with swallowing unclear how effective this will be. 3. Severe halitosis. This is multifactorial in origin, patient already has underlying difficulty given his thickened saliva, now on high-dose prednisone and antibiotics. Instructed to restart nystatin 5 mils swish and spit/swallow if able. Alternate with Peridex dental rinse, and Biotene. Reviewed needed to do something with his oral secretions every 2 hours, to keep the bacteria/fungal count down as well as keep his secretions thinned. 4. Caregiver fatigue. Patient does present with challenges regarding now his more complicated care and high risk for choking/airway obstruction. is quite concerned, also overlie a financial stressors, and increasing needs. Will have our medical palliative care criminal justice social worker Amador thibodeaux to see if there [place] and psychosocial. 5. Advanced care planning. Patient does present with complexity regarding goals of care, patient most likely will have to access emergent care, and c oncern regarding chair choking and airway obstruction makes the finding the POLST difficult. We will continue to move forward as complications are addressed. 6. Hypotension. Patient has not had adequate fluids today, does present hypotensive with mild dizziness. Declined IV hydration, did agree to go home and aggressively hydrate, as well as to start his feedings. Reviewed risk particularly given the issues he is currently dealing with, the need to stay on top of this, he did verbalize understanding. Time Spent: 60 minutes with greater than 50% of this done in counseling regarding management of rash, symptoms, need for access to urgent care, as well as anticipatory guidance.
== END 2019-09-09 11:18 | disposition home or self-care (01) ==
LOC: PC 11:17
PROVIDERS: ATTEND Nurse Practitioner Adult Health
DX: Z51.5 Encounter for palliative care (principal); L27.0 Generalized skin eruption due to drugs and medicaments taken internally; T45.1X5A Adverse effect of antineoplastic and immunosuppressive drugs, initial encounter; R13.10 Dysphagia, unspecified; R19.6 Halitosis; C14.0 Malignant neoplasm of pharynx, unspecified; L29.9 Pruritus, unspecified; T45.1X5D Adverse effect of antineoplastic and immunosuppressive drugs, subsequent encounter; J44.9 Chronic obstructive pulmonary disease, unspecified; E03.9 Hypothyroidism, unspecified; G31.84 Mild cognitive impairment of uncertain or unknown etiology; F32.9 Major depressive disorder, single episode, unspecified; K21.9 Gastro-esophageal reflux disease without esophagitis; N40.1 Benign prostatic hyperplasia with lower urinary tract symptoms; N39.498 Other specified urinary incontinence; R33.8 Other retention of urine; R39.15 Urgency of urination; M19.90 Unspecified osteoarthritis, unspecified site; R53.83 Other fatigue; H54.7 Unspecified visual loss; H91.90 Unspecified hearing loss, unspecified ear; R47.81 Slurred speech; Z59.6 Low income; Z79.52 Long term (current) use of systemic steroids; Z93.1 Gastrostomy status
CPT/HCPCS: 99215

== ENCOUNTER 2019-10-06 22:02 | Outpatient (CLI) | payer MEDICARE, OTHER ==
--- NOTE | 2019-10-07 07:09 | Ultrasound Report ---
Reason: ABDOMINAL BLOATING, THROAT CANCER Procedure Date: 10/07/2019 Accession Number: [id number] / [id number] Procedure: US - Abdomen Complete CPT Code: Final Report FULL RESULT: EXAM: ABDOMEN ULTRASOUND EXAM DATE: 10/07/2019 12:03 AM CLINICAL HISTORY: Abdominal bloating, throat cancer. COMPARISON: ABDOMEN/PELVIS W/ 03/11/2019 1:05 PM. TECHNIQUE: Real-time scanning was performed with static images obtained. FINDINGS: Liver: 4.9 x 5 x 5.4 cm anechoic right liver cyst. No concerning features. No solid mass or intrahepatic bile duct dilation. Moderately echogenic heterogeneous liver. Right liver measures 15.5 cm. Main portal vein flow: Hepatopetal. Gallbladder: Normal. No stones, wall thickening, or sonographic Borjas's sign. Biliary System: Common bile duct measures 2.8 mm. No intrahepatic or extrahepatic ductal dilatation. Pancreas: Distal pancreas not well-seen. Limitations secondary to bowel gas. Remaining pancreas unremarkable. Kidneys: Right: 9.3 cm longitudinally. Echogenic renal cortex. No contour deforming mass, stones or hydronephrosis. Left: 10.1 cm longitudinally. 0.9 x 0.8 x 0.6 cm mid left renal anechoic cyst. Echogenic renal cortex. No contour deforming mass, stones or hydronephrosis. Spleen: 9.2 x 9.4 x 3.4 cm. Normal in size and echotexture. Aorta and Inferior Vena Cava: Limited visualization of the distal abdominal aorta due to bowel gas. Given the limitation, no focal abdominal aortic abnormality. Normal IVC. Other: Study limited by bowel gas. IMPRESSION: 1. 5.4 cm simple right liver cyst. Mild to moderately echogenic, heterogeneous liver probably represents fatty infiltration or underlying liver parenchymal process. No solid liver mass or intrahepatic bile duct dilation. 2. Normal gallbladder and common bile duct. 3. Limited visualization of the distal pancreas. Remaining pancreas is unremarkable. RADIA
== END 2019-10-06 22:03 | disposition home or self-care (01) ==
LOC: DI 22:02
PROVIDERS: ATTEND Family Medicine
DX: K76.89 Other specified diseases of liver (principal); C14.0 Malignant neoplasm of pharynx, unspecified
CPT/HCPCS: 76700

== ENCOUNTER 2019-10-14 13:11 | Outpatient (CLI) | payer MEDICARE, OTHER ==
--- NOTE | 2019-10-14 19:18 | CONSULTATION NOTE ---
Palliative Care Follow Up - Referral Referring Provider: Dr. Kyrie Moss Time of Visit: [id number] [place] [facility] [place] Reason: Recurrent squamous cell Ca of pharynx/Depression - Information Sources Records reviewed: Previous records reviewed History/Review of Systems obtained from: Patient, Family ( Hina present) Exam limitations: No limitations - History of Present Illness Update Brief HPI Update: Please see 09/09/2019 for more extensive history of current condition. 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 Of note his original diagnosis was oral pharyngeal cancer with unknown primary 1998, for which he received chemotherapy and concurrent radiation as well as radical neck dissection. He had been on nivolumab, and ended up with a significant toxicity of bullous pemphigoid gold, and has been on sustained high doses of prednisone, with now resulting sequela of this. He is currently on 40 mg dosing, he is due to see dermatology and oncology next week. He has been also experiencing ongoing incr easing concerns for airway obstruction. He is being followed by Dr. Kan ENT, with debriding of secretions in his airway, with increased frequency over the last couple weeks. On examination, his very severe and impressive rash has continued to improve. He does have bright red scarring where the blisters were, but no further pruritus, and only 1 open area of a 2 cm raw granulation tissue on his left thigh. He is very grateful in the context he was quite miserable. He has had no further new blisters for over 2 weeks. He is though developing cushingoid syndrome, he has fullness in his face, and significant central obesity, unfortunately with the increased pressure in his belly which is quite round and taut, he is having increased incontinence and increased shortness of breath. On oral exam, he does have oral candidiasis, particularly in the back pharynx area. He dislikes the taste of the nystatin, and is only been using it occasionally. Counseling provided regarding his risk factors with high doses of steroids, he needs to aggressively manage his oral candidiasis as it is most likely adding to his airway obstruction issues. There was a significant amount of discussion as there is high anxiety regarding patient's ongoing issues with "plugs", and formation of dried secretions in his airway. He is describing ways he compensates as far as behavioral expel mucous plugs, he has been seen in the ENT, his continues to express exasperation regarding his self-care and prevention of these plugs. He is to be doing consistently the humidifier, guaifenesin, oral care, and she is quite anxious that he is going to obstruct, particularly when she is not present. Patient also describes ongoing and progressive dizziness, particularly upon arising. Is orthostatic blood pressures did not show him is hypotensive, nor tachycardic. His other symptom he feels significant is his dyspnes rates it at a 10/10. His lungs are decreased in the bases, but clear, no wheezing at time of exam, he is not hypoxic at rest 95%. Will rule out anemia, but suspect some of this is with abdominal pressure and ability to take a deep breath. Patient's past medical history includes hypercholesteremia, COPD, mild cognitive short-term memory issues, hypothyroidism, GERD, BPH with history of retention, incontinence, and osteoarthritis. Social History - Living Situation Living arrangement: At home Living Situation: With spouse/s.o. Support System: Their daughter who is an ED nurse, fluent and visited for 4 days. This did help Hina as far as being able to do the dressings, evaluating the situation and providing her support. They have significant financial stressors, patient does need to continue to work at [employer], this is despite his fatigue and needing to work his feeding, hydration, and management of secretions around this. This is very anxiety producing for Hina, patient does not see any other way to be able to manage the current situation. Medications/Allergies - Medications Home Medications: Ambulatory Orders Medication Instructions Recorded Confirmed Alfuzosin HCl [Alfuzosin HCl ER] 10 mg PO DAILY 01/07/19 10/14/19 Atorvastatin [Lipitor] 20 mg ORAL DAILY 01/07/19 10/14/19 Levothyroxine Sodium [Synthroid] 100 mcg PO DAILY 01/07/19 10/14/19 Omeprazole 20 mg PO BID 01/07/19 10/14/19 Nystatin 100,000 unit PO QID 06/15/19 10/14/19 Guaifenesin [Tussin] 400 mg PO QID PRN 09/09/19 10/14/19 predniSONE [Prednisone] 40 mg PO DAILY 09/09/19 10/14/19 - Allergies Allergies/Adverse Reactions: Allergies Allergy/AdvReac Type Severity Reaction Status Date / Time codeine [Codeine] Allergy Mild Rash Verified 09/03/19 14:01 Review of Systems - Constitutional Constitutional: reports: Fatigue, Weight gain (showing signs of neeta syndrome with belly;cheeks full). denies: Fever, Chills - Eyes Eyes: reports: Vision loss - Ears, Nose & Throat Ears, Nose & Throat: reports: Hearing loss, Postnasal drainage, Hoarseness, Other (halitosis; significant oral secretions continue) - Cardiovascular Cardiovascular: reports: Lightheadedness (worsening through last few weeks), Decr. exercise tolerance. denies: Edema - Respiratory Respiratory: reports: SOB at rest, SOB with exertion, Other (minimal activity brings on SOB) - Gastrointestinal Gastrointestinal: reports: Abdominal distention, Other (tube feeding). denies: Constipation, Nausea, Reflux/heartburn - Genitourinary Genitourinary: reports: Frequency, Urgency, Incontinence (worsening with pressure of abdomen; wearing inc. pads) - Musculoskeletal Musculoskeletal: reports: Muscle aches, Stiffness, Muscle weakness - Integumentary Integumentary: reports: Rash (improved;), Lesions (only one moist one left). denies: Pruritis - Neurological Neurological: reports: General weakness, Memory problems (worsening;) - Psychiatric Psychiatric: reports: Depression, Anxiety - Hematologic/Lymphatic Hematologic/Lymphatic: reports: Anemia, Recurrent infections (treated for skin infection) - All Other Systems All Other Systems: reports: Reviewed and negative Physical Exam - Vital Signs Temperature: 36.1 C Pulse Rate: 88 Respiratory Rate: 18 O2 Saturation: 95 (ra @ rest) Blood Pressure: 116/71 (sitting; 123/73 standing) - Physical Exam General Appearance: positive: Alert, Mild distress, Anxious Eyes Bilateral: positive: Normal inspection ENT: positive: Pharyngeal erythema, Oral lesions, Other (s/s candidiasis back of pharynx; not using nystatin and when does once a day) Neck: positive: Stiff neck (lilmited ROM), Other (right neck dissection; skin taut and thin; throbbing noted of right jugular at base of neck) Cardiovascular: positive: Regular rate & rhythm Respiratory: positive: No respiratory distress, Diminished in bases. negative: Wheezes, Rales, Rhonchi Abdomen: positive: Non-tender, Nml bowel sounds, Distended, Obese, Other (PEG exit site noted) Skin: positive: Pallor, Dryness, Rash (fading rash hands/arms/chest bright red residual but no erythema or pruiritis; small 2 cm area of raw open area residual left thigh) Extremities: positive: No pedal edema Neurologic/Psychiatric: positive: Oriented x3, Slurred/abnml speech (mechanical), Depressed mood/affect, Flat affect Palliative Care - POLST Patient has POLST: No POLST Status: Full Code Pain: Pain unchanged, Location (right neck area; dull no need for medication), Severity (3/10) Tiredness/Fatigue: Severe (7-10), Comment (worsens with days he works; this includes long drive-talking and standing which are fatiguing to him) Drowsiness/Sedation: Moderate (4-6) Nausea: None Anorexia: None (does tube feedings; pushing fluids in response to concentration of urine) Dyspnea: Severe (7-10) Depression: None Anxiety: None Feelings of wellbeing/Perceived Quality of Life: Fair, Improved (some improvement with resolution of rash), Worsening (in context of concern not on treatment) Performance Status: Patient is able to manage his own ADLs, he can ambulate short distances though he does get dizzy and have shortness of breath. He has not had any falls. - Palliative Care Discussion: Lengthy discussion regarding goals of care. Daughter who is an ED nurse, is definitely concern regarding patient's high risk for obstruction, is worried about patient having interventions or CPR with ramifications regarding this. Patient himself "wants to be resuscitated". Counseling provided regarding the spectrum of care, patient is in a unique situation, he would require acute and aggressive intervention regarding his airway. Do not feel it would be in his best interest to fill out a POLST as a DNA R, given patient's wishes and goals and potential for acute/emergent care needs. Counseling provided regarding these 2 decisions out, when for acute/urgent intervention particularly regarding airway, and patient's goals to continue as long as quality and quantity of life are attainable. We did discuss in the context as the decision maker/Hina she "wants to know what to do". Patient is able to verbalize if he were unable to return to his previous level of functioning, and it would become evident he would not have any significant quality of life, or if he were going to have his suffering prolonged in the context of an end-of-life event he would want to be a DO NOT RESUSCITATE and focus on comfort care. This did seem to appease both of them, unfortunately there is no way to really morph the POLST to reflect this. We will continue to support Hina and Yuval in the conversation. Results - Lab Results Lab results reviewed: Yes Lab and Imaging Results: labs drawn, no significant findings. Will forward to oncology Impression and Recommendations - Palliative Care Impression: This is a 69-year-old gentleman with recurrent squamous cell carcinoma of the posterior pharynx, who recently presented with a grade 4 skin reaction secondary as it is nivolumab/immunotherapy. He remains at high risk for obstruction with his oral secretions, and presents with significant stressors and ongoing symptoms. He is experiencing some sequela from his high prolonged dose of steroids, as well as needing to manage significant emotional and financial stressors. His Hina presents with anxiety and caregiver fatigue. Palliative care continue to provide support in this complex situation, regarding psychosocial and symptom management. Recommendations/Counseling Done: 1. Bullous pemphigoid. Patient continues on prednisone 40 mg, he is due to see dermatology next week. He is experiencing some cushingoid syndromes, including increased abdominal fat/pressure resulting in worsening dyspnea and incontinence. Patient has continued to heal and have improvement, his pruritus, discomfort, and no signs of infection have left him and his quite pleased. 2. Airway obstruction. Patient continues to have recurrent crusting, has been seeing ENT more frequently. Counseling provided and support of ENT directions for continued use of humidifier more aggressively, they did get a new one. He is using Mucinex to help thin secretions, as well as frequent suctioning. Patient and have high anxiety, which is appropriate. 3. Oral candidiasis. He has only been minimally adherent to his nystatin, using it occasionally 1 time a day. Counseling provided regarding oral candidiasis in the setting of high steroid use, instructed to aggressively use swish and swallow 5 mils 4 times a day on days he is not working, and attempt as many as possible when he is. We will follow-up with Dr. Kan he is due to see him this week, regarding if would recommend weekly Diflucan at this point for better control. 4. Dizziness. Patient complains of lightheadedness and dizziness with standing, this is gotten progressively more problematic. It is mostly with position changes. He is not hypo-tensive nor presents with orthostatic changes. We did rule out anemia. I suspect he has more to do with his radical neck dissection and scarring. Patient is not had any falls, he does find it impactful on his quality of life. 5. Dyspnea. This is multifactorial in origin. He does rated as a severe quality of life issue, it is mostly with any kind of activity, he gets more breathless. I suspect this is somewhat due to his central obesity, his airway obstructive symptoms, I am not sure when he is due to be scanned again. Counseling provided regarding just pacing of activities at this point in time as we cannot find a specific etiology. 6. Caregiver fatigue. Patient does have significant complex and complicated care needs. herself has health issues, is feeling overwhelmed and very stressed regarding patient's possibility of obstruction. She gets very anxious, he is quite pragmatic in his approach. This creates quite a bit of tension and discussion during our counseling today. 7. Advanced care planning. Patient is quite complex and his needs for urgent/emergent care. is quite anxious, this was exacerbated by multiple family conversations which were important, as his daughter is an ED nurse. Patient's goals are to improve quality and prolonged quantity of life for as long as possible in the setting of his current quality of life. We did discuss in the future if there were situations that this would be a different approach, as Hina most likely would be the decision maker at that point in time. We did define some thresholds were DNA R and comfort measures would be appropriate. Time Spent: 60 minutes with greater than 50% of this done in counseling regarding symptom management, goals of care, and anticipatory guidance.
== END 2019-10-14 13:12 | disposition home or self-care (01) ==
LOC: PC 13:11
PROVIDERS: ATTEND Nurse Practitioner Adult Health
DX: Z51.5 Encounter for palliative care (principal); C14.0 Malignant neoplasm of pharynx, unspecified; J44.9 Chronic obstructive pulmonary disease, unspecified; G31.84 Mild cognitive impairment of uncertain or unknown etiology; F32.9 Major depressive disorder, single episode, unspecified; K21.9 Gastro-esophageal reflux disease without esophagitis; L12.0 Bullous pemphigoid; R42 Dizziness and giddiness; B37.0 Candidal stomatitis; R06.00 Dyspnea, unspecified; J98.8 Other specified respiratory disorders; N40.1 Benign prostatic hyperplasia with lower urinary tract symptoms; N39.498 Other specified urinary incontinence; R33.8 Other retention of urine; R39.15 Urgency of urination; R35.0 Frequency of micturition; E03.9 Hypothyroidism, unspecified; M19.90 Unspecified osteoarthritis, unspecified site; R53.83 Other fatigue; H54.7 Unspecified visual loss; H91.90 Unspecified hearing loss, unspecified ear; Z79.52 Long term (current) use of systemic steroids; E24.2 Drug-induced Cushing's syndrome; T38.0X5D Adverse effect of glucocorticoids and synthetic analogues, subsequent encounter
CPT/HCPCS: 99215

== ENCOUNTER 2019-10-14 14:07 | Outpatient (CLI) | payer MEDICARE, OTHER ==
[2019-10-14 14:25] LABS: BASOPHILS % (AUTO) 0.2 %; EOSINOPHILS % (AUTO) 0.4 %; HGB - HEMOGLOBIN 13.4 g/dL (14.0-18.0); LYMPHOCYTES # (AUTO) 0.2 10^3/uL (1.5-3.5); LYMPHOCYTES % (AUTO) 1.5 %; MEAN CORPUSCULAR HEMOGLOBIN 30.7 pg (27.0-31.0); MEAN CORPUSCULAR HGB CONC 33.6 g/dL (32.0-36.0); MEAN CORPUSCULAR VOLUME 91.3 fL (80.0-94.0); MEAN PLATELET VOLUME 10.1 fL (7.4-11.4); MONOCYTES # (AUTO) 0.7 10^3/uL (0.0-1.0); MONOCYTES % (AUTO) 6.1 %; NEUTROPHILS # (AUTO) 9.7 10^3/uL (1.5-6.6); NEUTROPHILS % (AUTO) 90.5 %; PLT - PLATELET COUNT 180 10^3/uL (130-450); RED BLOOD COUNT 4.37 10^6/uL (4.70-6.10); RED CELL DISTRIBUTION WIDTH 14.1 % (12.0-15.0); WHITE BLOOD COUNT 10.7 x10^3/uL (4.8-10.8)
[2019-10-14 15:01] LABS: ALBUMIN 3.4 g/dL (3.2-5.5); ALBUMIN/GLOBULIN RATIO 1.3 (1.0-2.2); BILIRUBIN,TOTAL 0.6 mg/dL (0.2-1.0); CALCIUM 9.1 mg/dL (8.5-10.3)
== END 2019-10-14 14:08 | disposition home or self-care (01) ==
LOC: LAB 14:07
PROVIDERS: ATTEND Nurse Practitioner Adult Health
DX: Z79.899 Other long term (current) drug therapy (principal)
CPT/HCPCS: 36415; 80053; 85025

== ENCOUNTER 2019-12-09 08:56 | Outpatient (CLI) | payer MEDICARE, OTHER ==
[2019-12-09] MEDS ORDERED: IOVERSOL 320 100 ML VIAL IVP ONE ×2 (09:11→11:05)
[2019-12-09 09:54] LABS: ALBUMIN 3.4 g/dL (3.2-5.5); CALCIUM 9.2 mg/dL (8.5-10.3); CREATININE 0.9 mg/dL (0.6-1.2); PHOSPHORUS 3.4 mg/dL (2.5-4.6)
--- NOTE | 2019-12-09 10:54 | CT Report ---
Reason: OROPHARYNX CA Procedure Date: 12/09/2019 Accession Number: [id number] / [id number] Procedure: CT - SOFT TISSUE NECK W CPT Code: Final Report FULL RESULT: EXAM: CT SOFT TISSUE NECK WITH CONTRAST. EXAM DATE: 12/09/2019 10:10 AM. HISTORY: OROPHARYNX CA. COMPARISONS: NECK SOFT TISSUE W/ 08/07/2019 8:41 AM NECK SOFT TISSUE W/ 03/11/2019 1:05 PM PET/CT SKULL BASE TO MID THIGH 07/27/2016 8:35 AM. TECHNIQUE: Routine soft tissue neck CT protocol with contrast. Reconstructions: Coronal and sagittal. IV contrast: 80 mL OPTIray 320. In accordance with CT protocol optimization, one or more of the following dose reduction techniques were utilized for this exam: automated exposure control, adjustment of mA and/or KV based on patient size, or use of iterative reconstructive technique. FINDINGS: Again patient status post right neck dissection. Visualized Intracranial Contents: Unremarkable. Orbits: Symmetric and unremarkable. Sinuses: Visualized paranasal sinuses and mastoid air cells are clear. Oral cavity: Atrophy of right aspect of tongue. The floor of the mouth unremarkable. Pharynx: Decreased soft tissue thickening in right glossotonsillar sulcus region. No enhancing abnormality. The airway is patent. Larynx: Larynx and supraglottic airway are patent without mass lesion. Vocal cords are symmetric. The visualized trachea is unremarkable. Parotid, thyroid and Submandibular Glands: Atrophy of parotid glands and left submandibular gland. Right submandibular absent. Thyroid is small. No focal abnormality. Lymph Nodes: No enlarged lymph nodes are identified in the cervical, supraclavicular, and visualized superior mediastinal regions. Soft tissues: No mass lesion or abnormal enhancement. Vascular Structures: There are vascular calcifications. There is a band of soft tissue thickening surrounding the right cervical ICA ( series 3, images 66 through 69. Appearance similar to prior studies. Right IJ status post resection. Cervical vessels otherwise patent. Lung: The visualized lung apices are clear. Bones: No evidence of acute fracture or malalignment. There are moderate degenerative changes. Dens extends 8 mm above [place] line. Other: None. IMPRESSION: 1. Unchanged postoperative appearance status post right neck dissection. 2. Decreased area of right lateral pharyngeal mucosal thickening. 3. Unchanged soft tissue thickening within right carotid space 4. No recurrent or residual adenopathy. 5. Moderate degenerative changes of cervical spine. 6. Basilar invagination. RADIA
== END 2019-12-09 08:57 | disposition home or self-care (01) ==
LOC: LAB 08:56 → DI 08:57
PROVIDERS: ATTEND Internal Medicine Hematology & Oncology
DX: C10.9 Malignant neoplasm of oropharynx, unspecified (principal); C76.0 Malignant neoplasm of head, face and neck; C01 Malignant neoplasm of base of tongue; R94.4 Abnormal results of kidney function studies; M50.30 Other cervical disc degeneration, unspecified cervical region
CPT/HCPCS: 36415; 70491; 80069; Q9967

== ENCOUNTER 2019-12-16 11:52 | Outpatient (CLI) | payer MEDICARE, OTHER ==
[2019-12-16] MEDS ORDERED: IOVERSOL 320 100 ML VIAL IVP ONE ×2 (12:06→12:32)
--- NOTE | 2019-12-17 15:23 | CT Report ---
Reason: OROPHARYNX CA Procedure Date: 12/16/2019 Accession Number: [id number] / [id number] Procedure: CT - CHEST W CPT Code: Final Report FULL RESULT: EXAM: CT CHEST EXAM DATE: 12/16/2019 12:03 PM. CLINICAL HISTORY: Oropharynx CA. COMPARISONS: NECK SOFT TISSUE W/ 08/07/2019 8:41 AM. CHEST W08/07/2019 8:41 AM. CHEST W/O 04/15/2019 2:41 PM. CHEST W03/11/2019 1:05 PM. TECHNIQUE: Routine helical CT imaging was performed through the chest. IV contrast: 80 mL of Optiray 320. Reconstructions: Coronal and sagittal. In accordance with CT protocol optimization, one or more of the following dose reduction techniques were utilized for this exam: automated exposure control, adjustment of mA and/or KV based on patient size, or use of iterative reconstructive technique. FINDINGS: Lungs/Pleura: Bibasilar scar/atelectasis. No endobronchial obstruction. Scar/atelectasis also present within the lingula. No pleural effusions. No pneumothorax. No parenchymal cavities. There is biapical areas of parenchymal fibrosis most likely posttreatment related. Findings are stable. Small focus of parenchymal groundglass opacity peripheral right middle lobe new in the interval. Right apical granuloma is again seen. There is a filling defect within the peripheral segmental/subsegmental right posterior basal segment lower lobe pulmonary artery seen best on axial images 70-75, series 3. No other definite filling defects are identified. Mediastinum: Heart size is normal. Coronary artery calcified plaque. Small pericardial effusion. No enlarged mediastinal or hilar lymph nodes. The largest lymph nodes are precarinal measuring 5 mm in short axis dimension and subcarinal measuring 5 mm in short axis dimension as before. Small hilar lymph nodes are also again seen. Mid superior right paratracheal lymph node measuring 5 mm is also stable. Right paratracheal lymph node more superior location measuring up to 2-3 mm seen on images 18-20, series 3 is also unchanged. Left inferior cervical lymph node measuring 4 mm in short axis dimension is also stable seen on image 11, series 3. No new adenopathy. Bones: Degenerative changes of the thoracic spine. Hemangioma within T9 is again seen. No acute osseous abnormalities. No new bony lesions. Visualized Abdomen: Hepatic low-attenuation lesions are again seen. Contracted gallbladder. Spleen, adrenals and pancreas are unremarkable. Gastrostomy tube is again seen. Nonobstructive right renal calculus. 4 mm low-attenuation left renal lesion, too small to characterize as well as a 7 mm low-attenuation left posterior renal lesion also too small to characterize. Abdominal aortic calcified plaque. Include portions of the stomach and upper abdominal bowel are unremarkable. Other: Postsurgical changes involving the right neck are again seen. IMPRESSION: 1. Right lower lobe pulmonary artery focal segmental/subsegmental pulmonary embolus. 2. No new inferior cervical, mediastinal or hilar lymphadenopathy. Stable subcentimeter cervical and mediastinal and hilar lymph nodes. 3. Mid and lower lung scar/atelectasis. No new parenchymal lesions. No endobronchial obstruction. 4. Focal groundglass opacity peripheral right middle lobe, most likely inflammatory/infectious in etiology. 5. Hepatic and renal cysts, stable. RADIA The call report notification system was initiated by Dr. Ez Carrera at 02:42 PM on 12/17/2019. The above call report findings were discussed with Adilene De Guzman by Dr. Ez Carrera at 02:52 PM on 12/17/2019.
== END 2019-12-16 11:53 | disposition home or self-care (01) ==
LOC: DI 11:52
PROVIDERS: ATTEND Physician Assistant Medical
DX: C10.9 Malignant neoplasm of oropharynx, unspecified (principal); I26.93 Single subsegmental thrombotic pulmonary embolism without acute cor pulmonale; J98.11 Atelectasis; K76.89 Other specified diseases of liver; N28.1 Cyst of kidney, acquired
CPT/HCPCS: 71260; Q9967

== ENCOUNTER 2020-03-29 14:47 | Outpatient (CLI) | payer MEDICARE, OTHER ==
[2020-03-29] MEDS ORDERED: IOVERSOL 320 100 ML VIAL IVP ONE ×2 (15:39→16:34)
[2020-03-29 15:59] LABS: CALCIUM 8.8 mg/dL (8.5-10.3); CREATININE 1.4 mg/dL (0.6-1.2)
--- NOTE | 2020-03-30 08:33 | CT Report ---
Reason: HX OF H N CANCER Procedure Date: 03/29/2020 Accession Number: [id number] / [id number] Procedure: CT - SOFT TISSUE NECK W CPT Code: Final Report FULL RESULT: EXAM: CT SOFT TISSUE NECK WITH CONTRAST. EXAM DATE: 03/29/2020 04:27 PM. HISTORY: History of head and neck cancer. No new symptoms. Clinical history from prior studies include: Oropharyngeal cancer. [id number] oropharyngeal cancer first diagnosed [id number]. History of level 2 through level 5 right-sided modified radical neck dissection. Positive level 2 and level 5 lymph nodes treated with adjuvant chemoradiation. History of biopsy right posterior oropharyngeal wall in January 2018 with findings suspicious but not clearly diagnostic for squamous cell carcinoma. COMPARISONS: NECK SOFT TISSUE W/ 12/09/2019 10:07 AM NECK SOFT TISSUE W/ 08/07/2019 8:41 AM NECK SOFT TISSUE W/ 03/11/2019 1:05 PM. TECHNIQUE: Routine soft tissue neck CT protocol with contrast. Reconstructions: Coronal and sagittal. IV contrast: 80 mL Optiray 320. In accordance with CT protocol optimization, one or more of the following dose reduction techniques were utilized for this exam: automated exposure control, adjustment of mA and/or KV based on patient size, or use of iterative reconstructive technique. FINDINGS: Visualized Intracranial Contents: Unremarkable. Orbits: Symmetric and unremarkable. Sinuses: Mucosal thickening is seen inferiorly in bilateral maxillary antra. Poor pneumatization is seen involving inferior mastoid air cells greater on the right. Oral cavity: Metallic artifact from dentition partially obscures the oral cavity. Fatty replacement of tongue musculature, greater on the right is once again appreciated. Pharynx: Mild mucosal thickening is seen in the right lateral oropharynx at the junction with the hypopharynx. 6 mm polypoid focus is seen anterior and medial to the orifice of the pyriform sinus. No associated abnormal enhancement. These findings are unchanged. The psychiatry adult physician spaces and pterygopalatine fossa are symmetric and unremarkable. The infratemporal fossa, parapharyngeal spaces, and retropharyngeal space are unremarkable. The base of the tongue is symmetric and unremarkable. The airway is patent. Larynx: Larynx and supraglottic airway are patent without mass lesion. Vocal cords are symmetric. There is a lobular 15 mm focus of mucosal based polypoid opacification in the posterior proximal trachea to the right of midline. This is new. Parotid and Submandibular Glands: Fatty atrophy of bilateral parotid and left submandibular glands is once again evident. Right submandibular gland is likely surgically absent. This is unchanged. Lymph Nodes: No enlarged lymph nodes are identified in the cervical, supraclavicular, and visualized superior mediastinal regions. Soft tissues: Extensive postoperative change from radical right neck dissection is seen, unchanged. No mass lesion or abnormal enhancement. Vascular Structures: Patent. Surgical absence of right internal jugular vein is once again appreciated. Atherosclerotic calcification is seen in the thoracic inlet and carotid bifurcation. Thyroid Gland: Small in size. Unremarkable. Lung: Biapical pleural thickening and subpleural scarring is noted, not significantly changed. No consolidation is appreciated. Bones: Mild basilar invagination is seen. The tip of the odontoid projects approximately 9 mm above [place] line. Occipital atlantal assimilation is present. This is not significantly changed. Straightening of the cervical spine is appreciated. Moderate spondylosis is seen throughout the cervical spine. There is an old mild wedge compression fracture of the T3 superior endplate. No acute fracture. Patchy osteopenia is seen in the visualized upper cervical spine and posterior mandible consistent with postradiation change. Other: None. IMPRESSION: 1. Stable posttreatment change from radical right neck dissection. Stable posttreatment change from radiation therapy. 2. No abnormal cervical lymphadenopathy. 3. Mild mucosal thickening in right lateral oral pharynx with small polypoid appearance at the orifice of the pyriform sinus. This is unchanged. This may represent posttreatment sequela. 4. Basilar invagination with occipital atlantal assimilation. This is unchanged. RADIA
--- NOTE | 2020-03-30 16:09 | CT Report ---
Reason: HX OF H N CANCER Procedure Date: 03/29/2020 Accession Number: [id number] / [id number] Procedure: CT - CHEST W CPT Code: Final Report FULL RESULT: EXAM: CT CHEST EXAM DATE: 03/29/2020 04:27 PM. CLINICAL HISTORY: Head and neck cancer COMPARISONS: CHEST W/ 12/16/2019 12:16 PM CHEST W/ 08/07/2019 8:41 AM. TECHNIQUE: Routine helical CT imaging was performed through the chest. IV contrast: 80 mL Optiray 320. Reconstructions: Coronal and sagittal. In accordance with CT protocol optimization, one or more of the following dose reduction techniques were utilized for this exam: automated exposure control, adjustment of mA and/or KV based on patient size, or use of iterative reconstructive technique. FINDINGS: Thyroid Gland: Atrophic. Lungs/Pleura: Mild centrilobular emphysema. Unchanged biapical subpleural scarring. No pulmonary nodule or mass. The previously described focal groundglass opacity in the peripheral right middle lobe is no longer seen. No new focal infiltrate. Trace bilateral pleural effusions, slightly increased in size compared to 12/16/2019. Heart and Great Vessels: Heart size is normal. Unchanged trace pericardial effusion. Mild atherosclerotic calcifications within the coronary arteries and aorta. The aorta and visualized central pulmonary arteries are otherwise unremarkable. Thoracic Lymph Nodes: No adenopathy. Bones: T8 and T9 vertebral body hemangiomata. Chronic mild L3 superior endplate compression deformity. Interval acute versus subacute mild L1 superior endplate compression fracture. No suspicious lytic or blastic osseous lesion. Visualized Abdomen: Percutaneous gastrostomy tube terminating in the anterior gastric body. 5.9 x 4.9 cm cyst in posterior inferior right hepatic lobe segment 6 (). Unchanged tiny circumscribed subcentimeter hypoattenuating foci in segments 4B and 5 ( and 96) are too small to categorize further. Two circumscribed sub-centimeter hypoattenuating foci in the left renal cortex are too small to characterize further but likely represent cysts (45 and 48). Colonic diverticulosis. Other: None. IMPRESSION: 1. Mild centrilobular emphysema, as before. 2. Slightly increased size of trace bilateral pleural effusions compared to 12/16/2019. 3. Interval acute versus subacute mild L1 superior endplate compression fracture. 4. No new pulmonary nodule or mass, or thoracic adenopathy. RADIA
== END 2020-03-29 14:48 | disposition home or self-care (01) ==
LOC: LAB 14:47
PROVIDERS: ATTEND Physician Assistant Medical
DX: Z08 Encounter for follow-up examination after completed treatment for malignant neoplasm (principal); Z85.819 Personal history of malignant neoplasm of unspecified site of lip, oral cavity, and pharynx; J43.2 Centrilobular emphysema; J90 Pleural effusion, not elsewhere classified
CPT/HCPCS: 36415; 70491; 71260; 80048; Q9967

== ENCOUNTER 2020-04-15 14:52 | Outpatient (CLI) | payer MEDICARE, OTHER ==
--- NOTE | 2020-04-15 16:56 | CONSULTATION NOTE ---
Palliative Care Follow Up - Referral Referring Provider: Dr. Kyrie Moss Time of Visit: [id number] Referral setting: Home Referral Reason: Oropharynx squamous cell CA/bullous pemphigoid/MCI - Information Sources Records reviewed: Previous records reviewed History/Review of Systems obtained from: Patient, Family ( Hina present for visit) Exam limitations: Clinical condition (patient with mild STM issues; able to fully participate in visit) - History of Present Illness Update Brief HPI Update: This is a 70-year-old gentleman with extensive history, regarding his recurrent squamous cell carcinoma posterior pharynx. He was originally diagnosed with unknown primary 1997, for which she received chemotherapy, concurrent radiation as well as radical neck dissection. He had recurrence diagnosed in April 2018. He received nivolumab, from 05/2018 and discontinued in 08/2019 when he developed severe immunotherapy reaction of bullous pemphigoid. His severe blisters, and has been now long-term on high doses of prednisone. He is currently on a taper down to 30 mg alternating with 25 mg daily. He has been experiencing sequela with increased irritability, significant central obesity, fullness in his face, and concern for further osteopenia. On exam, patient's has scarring, no further evidence of blisters, patient denies pruritus. He is not needing any topicals, he has had difficulty with irritability, but his most persistent symptom of distress is his dizziness. This does seem to be worsening. Does not appear to be related dehydration, though he does tend to run somewhat lower on his blood pressure. It seems to be mostly with sitting to standing, and some neck rotation. Of note with right nec k dissection patient is surgically absence of a right internal jugular vein. It has been attributed to his prednisone, though I suspect it is more to do with his neck dissection. Patient's most problematic component, other than his dysphagia, is clearing of secretions. He does get thickened plaques, and has to cough them up. He does have Mucomyst which he is used which assists, but does get dry and if has coughing spasms with new anti-coag for recent diagnosis of PE, has intermittent hemoptysis. He also complains of severe nasal congestion, that adds to the secretions in his back of his throat, he does get upper airway rhonchi and snoring. Previously had been going to the ENT to get it cleared, though under COVID-19 and now on anti-coag, has not been doing this regularly. Patient also with recent compression fracture in his lumbar region, pain is improving though remains somewhat persistent. Patient with high-dose steroids long-term, baseline osteopenia remains at high risk for recurrent issues. Patient did have an episode of syncope, this scared his significantly. She herself has had health issues, which is heightened her anxiety, which in turn creates increased tension between her and her . She is quite frightened when he is having choking or difficulty breathing, he himself does not see this as concerning and thus attention. Patient is having some functional decline, this has some to do with most likely sequela from the long-term prednisone, he is having some increased weakness, with upper and lower extremity muscle wasting. He has less tolerance for activity, impacted by his shortness of breath, most significantly by his dizziness, and need for frequent rest periods. With patient's fluctuating symptoms status, 's heightened anxiety and co ncern, palliative care visit was made to address and evaluate home situation, patient's medication adherence related to 's concern, and provide psychosocial support to both patient and his . Social History - Living Situation Living arrangement: At home Living Situation: With spouse/s.o. Support System: Patient had been working at [employer], he is currently on FMLA. He would like to retire, but given some of his benefits he is hoping to go back for 6 days. His is quite concerned regarding his dizziness and exposure to COVID-19. They do live in a home that is 2 stories, patient is on the top level. With his fatigue and dizziness this of course is a safety concern for him going up and down the stairs. They do have a daughter and son, but do not live in the area. They have very little community support, and significant amount of financial stressors. herself has significant health concerns, was recently in the hospital. She perceives that she is patient's caregiver, though patient has been fairly independent. He does need oversight given his short-term memory issues, and difficulty with speaking and hearing. Medications/Allergies - Medications Home Medications: Ambulatory Orders Medication Instructions Recorded Confirmed Atorvastatin [Lipitor] 20 mg ORAL DAILY 01/07/19 04/15/20 Levothyroxine Sodium [Synthroid] 100 mcg PO DAILY 01/07/19 04/15/20 Omeprazole 20 mg PO BID 01/07/19 04/15/20 Nystatin 100,000 unit PO QID PRN 06/15/19 04/15/20 Guaifenesin [Tussin] 400 mg PO QID PRN 09/09/19 04/15/20 predniSONE [Prednisone] 30 mg PO DAILY MDD alt with 25 mg 09/09/19 04/15/20 Alfuzosin HCl [Alfuzosin HCl ER] 10 mg PO DAILY 04/15/20 04/15/20 Calcium Carbonate/Vitamin D3 500 mg PO BID 04/15/20 04/15/20 [Calcium 500-Vit D3 200 Tablet] Cholecalciferol (Vitamin D3) 2,000 units PO DAILY 04/15/20 04/15/20 [Vitamin D3] Doxycycline Hyclate 100 mg PO BID 04/15/20 04/15/20 Mucomyst 1 amp INH BID PRN 04/15/20 Niacinamide [Endur-Amide] 500 mg PO TID 04/15/20 04/15/20 Rivaroxaban [Xarelto] 20 mg PO DAILY 04/15/20 04/15/20 Sulfamethox/Trimeth 800/160 1 tab PO .MWF 04/15/20 04/15/20 [Bactrim Ds] - Allergies Allergies/Adverse Reactions: Allergies Allergy/AdvReac Type Severity Reaction Status Date / Time codeine [Codeine] Allergy Mild Rash Verified 09/03/19 14:01 Review of Systems - Constitutional Constitutional: reports: Fatigue, Weight gain (patient continues with TF; is blending food for own formula; uses 2 boxes a day; review shows adequate calories and fluids; needs to decrease volume and do more frequent; time for tube change). denies: Fever, Chills - Eyes Eyes: reports: Vision loss - Ears, Nose & Throat Ears, Nose & Throat: reports: Hearing loss, Vertigo, Nasal congestion, Dry mouth, Other (radical neck dissection on right). denies: Mouth lesions - Cardiovascular Cardiovascular: reports: Lightheadedness, Exertional dyspnea, Decr. exercise tolerance. denies: Edema - Respiratory Respiratory: reports: Cough, Sputum production, Wheezing, Snoring, Hemoptysis (if coughing spasms severe), SOB with exertion. denies: SOB at rest - Gastrointestinal Gastrointestinal: reports: Abdominal distention (correction steriods now;), Reflux/heartburn (worsening; out of omeprazole), Good appetite. denies: Constip ation, Nausea - Genitourinary Genitourinary: reports: Frequency, Urgency, Incontinence - Musculoskeletal Musculoskeletal: reports: Back pain, Muscle aches, Stiffness, Limited range of motion, Muscle weakness. denies: Assistive devices (could use walker or quad cane) - Integumentary Integumentary: reports: Rash (improved;), Dryness. denies: Pruritis - Neurological Neurological: reports: General weakness, Dizziness, Memory problems (mild STM), Abnormal gait - Psychiatric Psychiatric: reports: Aggitation (reports fluctuating irritablility / impatience). denies: Depression, Anxiety - Hematologic/Lymphatic Hematologic/Lymphatic: denies: Recurrent infections - All Other Systems All Other Systems: reports: Reviewed and negative Physical Exam - Vital Signs Temperature: 96.9 C Pulse Rate: 96 (104 standing) Respiratory Rate: 18 O2 Saturation: 94 (ra @ rest) Blood Pressure: 102/62 (sitting; 92/62 standing) - Physical Exam General Appearance: positive: Alert Eyes Bilateral: positive: Normal inspection, No scleral icterus ENT: positive: No signs of dehydration, Other (scarring base of right tongue; no mass appreciated; white coating on tongue no buccal lesions;) Neck: positive: Other (scarring on right neck area; no masses palpated along surgical incision al lines) Cardiovascular: positive: Regular rate & rhythm, Tachycardia Respiratory: positive: No respiratory distress, Diminished in bases, Rhonchi (high upper airways only). negative: Wheezes Abdomen: positive: Soft, Distended (full and firm;) Skin: positive: Dryness, Other (irritation with tracking out of feeding if pushing too much). negative: Pruritis, Rash (scarring from rash; no blisters; well healed currently controlled) Extremities: positive: No pedal edema, Other (upper and lower extremity wasting) Neurologic/Psychiatric: positive: Oriented x3, Mood/affect nml, Weakness (frequent rest periods with dizzyness), Slurred/abnml speech (mechanical; able to make needs known), Flat affect Palliative Care - POLST Patient has POLST: No POLST Status: Full Code Pain: Pain unchanged, Location (persistent point tenderness in base of mouth; recent pain in back) Tiredness/Fatigue: Moderate (4-6) Drowsiness/Sedation: None Nausea: None Anorexia: None Dyspnea: Moderate (4-6) Depression: Mild (1-3) Anxiety: Mild (1-3) (more irritability than anxiety) Feelings of wellbeing/Perceived Quality of Life: Good, Acceptable, Improved Sleep: Variable sleep pattern (up frequently to void) Constipation: No Performance Status: Patient is able to ambulate short distances, though has increasing activity intolerance and increasing muscle weakness. He is still trying to manage things around the home, which is significant distress. He is willing though to consider a quad cane, though a walker would most likely be more appropriate. He is able to manage his own ADLs. He does go up and down the stairs unfortunately it is almost 2 stories,but holds on to railing for safety. Has not had any "falls" other than episode with syncope. - Palliative Care Discussion: Patient does have some short-term memory issues, and poor insight sometimes into the seriousness of his actions. He is somewhat pragmatic, and does admit to irritability with his ongoing prednisone. He does get quite distressed with Hina, as she is quite anxious regarding almost everything regarding his health. This causes a significant tension between the 2 of them, which further increases Hina's anxiety. Patient is currently under surveillance, suspect does not actually proceed the seriousness of his illness. His latest scans did not show any progressive disease. Patient is high risk for sequela of infection, choking, or of a fall. He was hopeful at some point to be able to swallow or eat again, but did discuss this is most likely not possible given the severity of his dysphagia, and ongoing issues with secretions. is feeling quite overwhelmed, they are trying to organize their affairs, with hope to move backup administrative coordinator to family. Much discussion was given regarding concerns for having her son visit, would both be of help and a stressor. Impression and Recommendations - Palliative Care Impression: This is a 70-year-old gentleman with recurrent squamous cell carcinoma of the pharynx, currently recovering from his grade 4 skin reaction secondary to his nivolumab. He continues to remain at high risk for obstruction with his oral secretions, and has been on steroids long-term. They are attempting to taper, currently he is tolerating this. Palliative care to provide support in this complex situation, regarding psychosocial and symptom management. Recommendations/Counseling Done: 1. Medication adherence. quite concerned patient is not taking his prescriptions appropriately, we did review his current list, his prednisone taper, how he feels his Mediset's. He was missing omeprazole, had not filled that for a couple weeks has had . He is also not filled his niacinamide, but otherwise was quite knowledgeable and compliant with his medications. Omeprazole was reordered. 2. Back pain secondary to compression fractures. Patient had been using ibuprofen. Patient without omeprazole and long-term steroids, has had increased symptoms of GERD. He is at high risk for bleeding, with prednisone and blood thinner, as well as history of GERD. Patient educated on need for omeprazole, instructed to restart it twice daily when obtained prescription. Patient also discouraged from taking ibuprofen, recommended acetaminophen instead. We also discussed topicals as well as use of heat. 3. Nasal congestion. This is adding to patient's oral secretions and thus respiratory secretions. Patient does have a nasal lavage, problem solving done with review of how to use appropriately. Patient verbalized understanding, and demonstrated back. 4. Oral secretions. Patient using Mucomyst 1 time a day, dislikes the taste of it. He does find it beneficial as far as being able to move the secretions and moisten the empirically first thing in the morning. Patient way to order nasal "fishes" would most likely benefit just from moisture and loosening secretions. They will order and encouraged him to use 2-3 times a day, as well as the addition of the nasal lavage. Encouraged to continue to follow-up with ENT on a regular basis. 5. GERD. Patient remains at high risk for gastritis, counseling provided regarding the need to resume omeprazole twice daily, as well as taking prednisone with his food. 6. Cushingoid syndrome. Patient with significant central obesity, adding to leakage at his gastrostomy site. Patient was instructed on small frequent feedings, rather than 2 times, increased and spread over 6 times. Patient verbalized understanding. He is due to have his tube changed out, encouraged to follow-up with this as well. Patient also has muscle wasting, most likely sequela of long-term steroids as well. This was shared with patient, he is willing to use a quad cane. We will follow-up given financial stressors of [place] has 1. 7. Dizziness. This is been persistent, does appear to be worsening, can be exacerbated by decreased fluid intake, but doing fairly well with this. I suspect this has more to do with his radical neck dissection and scarring, patient has not had any falls, one episode of syncope, but does find a significantly impact on his quality of life. 8. Caregiver fatigue. Patient does have significant complex and complicated care needs. with her own health issues, is feeling overwhelmed and very stressed. She gets very anxious, he is quite pragmatic in his approach and with his increased irritability does cause increased tension between the 2 of them. Son possibly coming to visit, this is caused increased stress and distress, counseling provided regarding how to set limits, weighing benefits and burdens of having him come and setting clear boundaries and expectations. Time Spent: 75 minutes with getting 50% of this done in counseling regarding symptom management, medication adherence, safety, psychosocial support, and anticipatory guidance.
== END 2020-04-15 14:53 | disposition home or self-care (01) ==
LOC: PC 14:52
PROVIDERS: ATTEND Nurse Practitioner Adult Health
DX: Z51.5 Encounter for palliative care (principal); R42 Dizziness and giddiness; R13.10 Dysphagia, unspecified; E24.2 Drug-induced Cushing's syndrome; R45.4 Irritability and anger; T38.0X5D Adverse effect of glucocorticoids and synthetic analogues, subsequent encounter; K21.9 Gastro-esophageal reflux disease without esophagitis; M48.56XD Collapsed vertebra, not elsewhere classified, lumbar region, subsequent encounter for fracture with routine healing; R41.3 Other amnesia; I26.99 Other pulmonary embolism without acute cor pulmonale; R09.81 Nasal congestion; M85.80 Other specified disorders of bone density and structure, unspecified site; C14.0 Malignant neoplasm of pharynx, unspecified; Z79.899 Other long term (current) drug therapy; Z79.01 Long term (current) use of anticoagulants; Z79.52 Long term (current) use of systemic steroids; Z93.1 Gastrostomy status; Z90.49 Acquired absence of other specified parts of digestive tract; Z87.2 Personal history of diseases of the skin and subcutaneous tissue; Z63.0 Problems in relationship with spouse or partner; Z59.9 Problem related to housing and economic circumstances, unspecified; Z60.9 Problem related to social environment, unspecified
CPT/HCPCS: 99350

== ENCOUNTER 2020-05-24 08:00 | Outpatient (CLI) | payer MEDICARE, OTHER ==
[2020-05-24 18:50] LABS: BASOPHILS % (AUTO) 0.4 %; EOSINOPHILS # (AUTO) 0.1 10^3/uL (0.0-0.7); HGB - HEMOGLOBIN 9.8 g/dL (14.0-18.0); LYMPHOCYTES # (AUTO) 0.6 10^3/uL (1.5-3.5); LYMPHOCYTES % (AUTO) 6.7 %; MEAN CORPUSCULAR HEMOGLOBIN 27.4 pg (27.0-31.0); MEAN CORPUSCULAR HGB CONC 29.4 g/dL (32.0-36.0); MEAN PLATELET VOLUME 10.9 fL (7.4-11.4); MONOCYTES # (AUTO) 0.7 10^3/uL (0.0-1.0); MONOCYTES % (AUTO) 7.7 %; NEUTROPHILS # (AUTO) 7.9 10^3/uL (1.5-6.6); NEUTROPHILS % (AUTO) 82.9 %; PLT - PLATELET COUNT 197 10^3/uL (130-450); RED BLOOD COUNT 3.58 10^6/uL (4.70-6.10); RED CELL DISTRIBUTION WIDTH 15.8 % (12.0-15.0); WHITE BLOOD COUNT 9.6 x10^3/uL (4.8-10.8)
[2020-05-24 19:18] LABS: ALBUMIN 3.5 g/dL (3.2-5.5); ALBUMIN/GLOBULIN RATIO 1.3 (1.0-2.2); BILIRUBIN,TOTAL 0.6 mg/dL (0.2-1.0); CALCIUM 9.2 mg/dL (8.5-10.3); CREATININE 1.3 mg/dL (0.6-1.2); TOTAL PROTEIN 6.1 g/dL (6.7-8.2)
[2020-05-25 17:14] LABS: FERRITIN 26.4 ng/mL (23.9-336.2)
[2020-05-25 17:17] LABS: % IRON SATURATION 6 % (20-50); IRON 27 ug/dL (45-182); TOTAL IRON BINDING CAPACITY 416 ug/dL (250-450); TRANSFERRIN 297 mg/dL (180-329)
== END 2020-05-24 23:59 | disposition home or self-care (01) ==
LOC: LAB.WCP 08:00
PROVIDERS: ATTEND Family Medicine
DX: R41.82 Altered mental status, unspecified (principal); D64.9 Anemia, unspecified
CPT/HCPCS: 36415; 80053; 82607; 82728; 83540; 84466; 85025

== ENCOUNTER 2020-05-26 13:14 | Outpatient (CLI) | payer MEDICARE, OTHER ==
[2020-05-26] MEDS ORDERED: IOVERSOL 320 100 ML VIAL IVP ONE ×2 (13:26→13:50)
--- NOTE | 2020-05-26 14:20 | CT Report ---
PROCEDURE: SOFT TISSUE NECK W INDICATIONS: History of head and neck cancer CONTRAST: 100 cc of Isovue-320 administered intravenously TECHNIQUE: After the administration of intravenous contrast, 3.0 mm axial sections acquired from the sella to th e aortic arch. Additional oblique axial 3.0 mm sections acquired through the pharynx. 3 mm thick co nathan reformats were generated. For radiation dose reduction, the following was used: automated exp osure control, adjustment of mA and/or kV according to patient size. COMPARISON: 03/29/2020; 12/09/2019 FINDINGS: Image quality: Excellent. Postsurgical changes of right neck dissection and chronic post radiation changes including muscular a nd glandular atrophy and the right neck are similar to the prior studies. There is no suspicious soft tissue density mass in the right neck to suggest local recurrence. There is no abnormal mucosal enha ncement or neck mass identified otherwise. No threshold enlarged cervical or supraclavicular lymph no de. No suspicious lytic or blastic osseous lesion. No suspicious finding in the included lung apices. Left parotid and submandibular glands are atrophic but otherwise unremarkable. Uniform thyroid gland attenuation. Extensive cervical carotid atherosclerotic calcifications with no gross evidence of flow -limiting stenosis. Degenerative changes throughout the cervical spine. Radiation changes in the lung apices. IMPRESSION: Postsurgical and postradiation changes in the right neck. No evidence of recurrent or metastatic dise ase in the neck. Reviewed by: Rigo Bueno MD on 05/26/2020 2:19 PM PDT Approved by: Rigo Bueno MD on 05/26/2020 2:19 PM PDT Station ID: [id number]
--- NOTE | 2020-05-26 14:59 | CT Report ---
PROCEDURE: CHEST W INDICATIONS: HEAD, NECK CANCER CONTRAST: Intravenous contrast utilized TECHNIQUE: After the administration of intravenous contrast, 5 mm thick sections acquired from the pulmonary api nishant to the posterior costophrenic angles. 7 mm thick coronal MIP reformats were acquired. For radia tion dose reduction, the following was used: automated exposure control, adjustment of mA and/or kV according to patient size. COMPARISON: Prior chest CT 03/29/2020. FINDINGS: Image quality: Excellent. Lungs and pleura: No acute air space opacities. There is centrilobular emphysema moderate in severit y over the upper lungs, with superimposed mild fibrotic change at the upper lobes potentially represe nting sequela of radiation therapy near this area, given presence of radical neck dissection on the r ight seen inferiorly extending into the supraclavicular fossa area on the right. No significant pleur al effusions or pneumothorax. Central and peripheral airways are patent and normal in caliber. Mediastinum: Heart size is normal. No pericardial effusion. No mediastinal or hilar adenopathy by size criteria. Thoracic aorta and central pulmonary arteries are normal in size. Esophagus is hue l in caliber. No hiatal hernia. Bones and chest wall: No suspicious bony lesions. A previously identified superior L1 endplate comp ression fracture is again seen. No osteolytic process has developed in this area that would indicate this is a pathologic fracture. Rather, it most likely is osteoporotic in origin. No vertebral body co mpression fractures. No axillary or supraclavicular adenopathy by size criteria. Thyroid gland is n ot well seen. Abdomen: Visualized upper abdominal solid organs appear normal. Upper abdominal bowel loops are nor mal in caliber. IMPRESSION: Through the visualized examination that includes a portion of the upper abdomen there is no evidence of metastatic disease. Centrilobular emphysema is present over the upper lungs, most prominent near t he apices, and there is also mild fibrotic change through this area potentially a manifestation of ad jacent radiation therapy. Superior endplate L1 mild compression fracture, osteoporotic in origin, by appearance. Reviewed by: Aashish Dutton MD on 05/26/2020 2:57 PM PDT Approved by: Aashish Dutton MD on 05/26/2020 2:57 PM PDT Station ID: [id number]
== END 2020-05-26 13:15 | disposition home or self-care (01) ==
LOC: DI 13:14
PROVIDERS: ATTEND Internal Medicine Hematology & Oncology
DX: Z08 Encounter for follow-up examination after completed treatment for malignant neoplasm (principal); J43.2 Centrilobular emphysema; M80.88XD Other osteoporosis with current pathological fracture, vertebra(e), subsequent encounter for fracture with routine healing; Z92.3 Personal history of irradiation; Z85.89 Personal history of malignant neoplasm of other organs and systems; Z98.890 Other specified postprocedural states
CPT/HCPCS: 70491; 71260; Q9967

== ENCOUNTER 2020-06-01 13:17 | Outpatient (CLI) | payer MEDICARE, OTHER ==
[2020-06-01] MEDS ORDERED: GADOBUTROL 10 MMOL/10 ML VIAL ONE (13:28)
[2020-06-01] MEDS ORDERED: GADOBUTROL 10 MMOL/10 ML VIAL IVP ONE (14:57)
--- NOTE | 2020-06-01 15:27 | MRI Report ---
PROCEDURE: Brain W/WO INDICATIONS: ALTERED MENTAL STATUS, UNSPECIFIED CONTRAST: IV CONTRAST: Gadavist ml: 8 TECHNIQUE: Noncontrast axial T1 spin echo, axial T2 fast spin echo, sagittal and axial FLAIR, coronal T2 fast sp in echo, axial gradient echo, axial diffusion and ADC through the brain. After the administration of contrast, axial and coronal T1 spin echo with fat saturation through the brain. COMPARISON: None. FINDINGS: Image quality: Excellent. CSF spaces: Basal cisterns are patent. No extra-axial fluid collections. Ventricles are normal in size and shape. Brain: No midline shift. No intracranial bleeds or masses. No abnormal intracranial enhancement. There is cerebral volume loss for age. There is periventricular white matter chronic small vessel is chemic change. The brainstem appears normal. Diffusion-weighted images demonstrate no acute ischemi c insults. No chronic ischemic insults. Normal intravascular flow voids are present. Skull and face: Calvarial marrow is normal in signal. Orbits appear normal. Sinuses: Mild mucosal thickening in the bilateral maxillary and left ethmoid sinuses. IMPRESSION: 1. Mild volume loss and minimal small vessel ischemic disease. 2. Sinus disease. 3. No acute process. No recent infarct. Reviewed by: Destiny Montilla MD on 06/01/2020 2:26 PM [facility] Approved by: Destiny Montilla MD on 06/01/2020 2:26 PM [place] Station ID: [id number]
== END 2020-06-01 13:18 | disposition home or self-care (01) ==
LOC: DI 13:17
PROVIDERS: ATTEND Family Medicine
DX: R41.82 Altered mental status, unspecified (principal); C14.0 Malignant neoplasm of pharynx, unspecified; R29.6 Repeated falls; R06.09 Other forms of dyspnea
CPT/HCPCS: 70553; 93306; A9585

== ENCOUNTER 2020-08-02 14:58 | Outpatient (CLI) | payer MEDICARE, OTHER ==
--- NOTE | 2020-08-02 16:33 | DEXA Report ---
PROCEDURE: Dexa Spine and/or Hip INDICATIONS: BONE DISORDER TECHNIQUE: Dual energy x-ray absorptiometry (DXA) was performed on a [facility]. Regions measur ed are the AP Spine, femoral neck, and if needed forearm. COMPARISON: None. FINDINGS: Lumbar Spine: Bone Mineral Density 1.274 g/cm/cm,T score 0.5, normal Left Hip: Bone Mineral Density 0.949 g/cm/cm,T score -1.1, minimal osteopenia Left Femoral Neck: Bone Mineral Density 0.803 g/cm/cm, T score -2.1, moderate to severe osteopenia (T score greater or equal to -1.0: NORMAL) (T score from -1.1 to -2.4: OSTEOPENIA) (T score less than or equal to -2.5 to: OSTEOPOROSIS) Impression: Moderate to severe osteopenia within the left femoral neck. Patients with diagnosis of osteoporosis or osteopenia should have regular bone mineral density assess ment. For those eligible for Medicare, routine testing is allowed once every 2 years. Testing frequ ency can be increased for patients who have rapidly progressing disease or for those who are receivin g medical therapy to restore bone mass. Reviewed by: Eleonora Wasserman MD on 08/02/2020 4:32 PM PDT Approved by: Eleonora Wasserman MD on 08/02/2020 4:32 PM PDT Station ID: [id number]
== END 2020-08-02 14:59 | disposition home or self-care (01) ==
LOC: DI 14:58
PROVIDERS: ATTEND Family Medicine
DX: M85.88 Other specified disorders of bone density and structure, other site (principal)
CPT/HCPCS: 77080

== ENCOUNTER 2020-08-07 15:54 | Outpatient (CLI) | payer MEDICARE, OTHER ==
[2020-08-05 18:47] LABS: ALBUMIN 3.5 g/dL (3.2-5.5); ALBUMIN/GLOBULIN RATIO 1.6 (1.0-2.2); BILIRUBIN,TOTAL 0.6 mg/dL (0.2-1.0); CALCIUM 9.3 mg/dL (8.5-10.3); TOTAL PROTEIN 5.7 g/dL (6.7-8.2)
[2020-08-05 20:05] LABS: HEMOGLOBIN A1c% 6.8 % (4.27-6.07)
== END 2020-08-07 15:55 | disposition home or self-care (01) ==
LOC: LAB.WCP 15:54
PROVIDERS: ATTEND Family Medicine
DX: R81 Glycosuria (principal)
CPT/HCPCS: 36415; 80053; 83036

== ENCOUNTER 2020-09-03 13:49 | Outpatient (CLI) | payer MEDICARE, OTHER ==
[2020-09-03] MEDS ORDERED: IOVERSOL 320 100 ML VIAL IVP ONE ×2 (14:01→14:19)
--- NOTE | 2020-09-03 16:18 | CT Report ---
PROCEDURE: SOFT TISSUE NECK W INDICATIONS: HX OF HEAD AND NECK CA CONTRAST: IV CONTRAST: Optiray 320 ml: 100 PO CONTRAST: *NO PO CONTRAST TECHNIQUE: After the administration of intravenous contrast, 3.0 mm axial sections acquired from the sella to th e aortic arch. Additional oblique axial 3.0 mm sections acquired through the pharynx. 3 mm thick co nathan reformats were generated. For radiation dose reduction, the following was used: automated exp osure control, adjustment of mA and/or kV according to patient size. COMPARISON: 05/26/2020, 03/29/2020, 12/16/2019. Correlation is made with the accompanying chest CT, . FINDINGS: Image quality: Excellent. Lymph nodes: No enlarged lymph nodes seen throughout the neck. Vessels: Visualized vasculature appears patent. Neck spaces: The tongue is fatty replaced. Generalized degenerative changes are seen, particularly o n the right side, including removal of the sternocleidomastoid muscle. The oropharynx, nasopharynx, and pharynx demonstrate no mucosal lesions. The vocal cords, false voca l cords, pyriform sinuses, epiglottis, and the vallecula, all appear normal. Extramucosal spaces julio cesar ear unremarkable. Glands: The parotid glands are highly atrophic. The susceptibility glands are not seen.. The thyroid is small in size. Miscellaneous: Visualized brain and orbits appear normal. Lung apices appear clear. Superficial so ft tissues appear normal. Bones: Mucosal thickening is seen within the inferior maxillary sinuses. There is mucosal thickening seen within the inferior left frontal sinus and anterior left ethmoid air cells. Mild rightward nasa l septal deviation can be seen. Relatively prominent cervical spine degenerative change can be seen, with severe disc space narrowing at C3-C4, with moderate to severe disc space narrowing at C4-C5, C5-C6, and C6-C7. Focal degenerativ e change can also be seen involving the C1-C2 interface anteriorly. The bone within this region appea rs irregular, which is stable. IMPRESSION: Postoperative and postradiation change can be seen. No abigail findings of tumor recurrence or metastatic disease can be seen. No enlarged lymph nodes are seen. Prominent cervical spine degenerative change, with irregular appearing bones, which may be on the bas is of prior radiation effect. Paranasal sinus disease is noted. Reviewed by: John Rogers MD on 09/03/2020 3:17 PM [facility] Approved by: John Rogers MD on 09/03/2020 3:17 PM [facility] Station ID: [id number]
--- NOTE | 2020-09-03 16:21 | CT Report ---
PROCEDURE: CHEST W INDICATIONS: HX OF HEAD AND NECK CA CONTRAST: IV CONTRAST: Optiray 320 ml: 100 PO CONTRAST: *NO PO CONTRAST TECHNIQUE: After the administration of intravenous contrast, 5 mm thick sections acquired from the pulmonary api nishant to the posterior costophrenic angles. 7 mm thick coronal MIP reformats were acquired. For radia tion dose reduction, the following was used: automated exposure control, adjustment of mA and/or kV according to patient size. COMPARISON: 05/26/2020, 03/29/2020, 12/16/2019. Correlation is made with the accompanying soft tissue neck CT dated 09/03/2020 FINDINGS: Image quality: Excellent. Lungs and pleura: No acute air space opacities. Centrilobular emphysematous changes are seen, which are more prominent at the lung apices down at the lung bases. Presumed radiation fibrosis at the lung apices. No pleural effusions or pneumothorax. Central and peripheral airways are patent and normal in caliber. Mediastinum: Heart size is normal. No pericardial effusion. No mediastinal or hilar adenopathy by size criteria. Thoracic aorta and central pulmonary arteries are normal in size. Esophagus is hue l in caliber. No hiatal hernia. Bones and chest wall: Postoperative change is partially seen involving the visualized lower neck No suspicious bony lesions. There is a stable L1 anterior wedge deformity. Note is made of a T9 vertebr al body hemangioma No acute vertebral body compression fractures. No axillary or supraclavicular santiago nopathy by size criteria. Thyroid gland is small in size. Abdomen: There is a water density cyst again seen along the medial aspect of the liver. A percutaneo us gastrostomy tube is seen. Visualized upper abdominal solid organs appear normal. Upper abdominal bowel loops are normal in caliber. IMPRESSION: No abigail findings of metastatic disease are seen. No pulmonary nodules are seen. Centrilobular emphysematous changes are seen. Radiation fibrosis is again seen involving the lung apices. Postoperative change is seen involving the lower neck. Incidental note is made of: Small thyroid T9 vertebral body hemangioma Stable L1 anterior wedge deformity Liver cysts Percutaneous gastrostomy tube Reviewed by: John Rogers MD on 09/03/2020 3:20 PM [facility] Approved by: John Rogers MD on 09/03/2020 3:20 PM [facility] Station ID: [id number]
== END 2020-09-03 13:50 | disposition home or self-care (01) ==
LOC: DI 13:49
PROVIDERS: ATTEND Internal Medicine Hematology & Oncology
DX: C76.0 Malignant neoplasm of head, face and neck (principal); M47.812 Spondylosis without myelopathy or radiculopathy, cervical region; J43.2 Centrilobular emphysema; K76.89 Other specified diseases of liver
CPT/HCPCS: 70491; 71260; Q9967

== ENCOUNTER 2020-09-04 14:14 | Emergency (ER) | payer MEDICARE, OTHER ==
--- NOTE | 2020-09-04 15:17 | ED Physician Documentation ---
History of Present Illness - Stated complaint Stated Complaint: LT FT SWELLING - Chief complaint Chief Complaint: Ext Problem - History obtained from History obtained from: Patient, Family - Additonal information Additional information: Patient comes emergency department chief complaint of sore on left great toe and swelling of left leg. 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 The patient denies any fevers or chills. He has a history of a PE, and was put on a blood thinner, which he thinks is Plavix for this; however, he wished to discontinue the Plavix and patient's states that his physician given permission to do this. states that she did not notice the patient's lower leg was swollen until yesterday, but the patient states it has been swollen for about a week. He denies any chest pain or shortness of breath. The patient is prophylactically on doxycycline and Bactrim to prevent infection. Review of Systems Ten Systems: 10 systems reviewed and negative Constitutional: reports: Reviewed and negative Eyes: reports: Reviewed and negative Ears: reports: Reviewed and negative Nose: reports: Reviewed and negative Throat: reports: Reviewed and negative Cardiac: reports: Reviewed and negative Respiratory: reports: Reviewed and negative GI: reports: Reviewed and negative : reports: Reviewed and negative Skin: reports: Lesions Musculoskeletal: reports: Extremity swelling Neurologic: reports: Reviewed and negative Psychiatric: reports: Reviewed and negative Endocrine: reports: Reviewed and negative Immunocompromised: reports: Reviewed and negative PD PAST MEDICAL HISTORY - Past Medical History Cardiovascular: High cholesterol Respiratory: COPD, Shortness of breath Neuro: Other Endocrine/Autoimmune: HyPOthyroidism GI: GERD : Benign prostate hypertrophy, Retention, Incontinence, Nocturia HEENT: Other Psych: None Musculoskeletal: Osteoarthritis Derm: Other - Past Surgical History Past Surgical History: Yes General: Colonoscopy, EGD, Other Ortho: Arthroscopic surgery, Other Neuro: Other HEENT: Tonsil/Adenoidectomy Derm: Skin cancer surgery - Present Medications Home Medications: Ambulatory Orders Medication Instructions Recorded Confirmed Atorvastatin [Lipitor] 20 mg ORAL DAILY 01/07/19 04/15/20 Levothyroxine Sodium [Synthroid] 100 mcg PO DAILY 01/07/19 04/15/20 Omeprazole 20 mg PO BID 01/07/19 04/15/20 Nystatin 100,000 unit PO QID PRN 06/15/19 04/15/20 Guaifenesin [Tussin] 400 mg PO QID PRN 09/09/19 04/15/20 predniSONE [Prednisone] 30 mg PO DAILY MDD alt with 25 mg 09/09/19 04/15/20 Alfuzosin HCl [Alfuzosin HCl ER] 10 mg PO DAILY 04/15/20 04/15/20 Calcium Carbonate/Vitamin D3 500 mg PO BID 04/15/20 04/15/20 [Calcium 500-Vit D3 200 Tablet] Cholecalciferol (Vitamin D3) 2,000 units PO DAILY 04/15/20 04/15/20 [Vitamin D3] Doxycycline Hyclate 100 mg PO BID 04/15/20 04/15/20 Mucomyst 1 amp INH BID PRN 04/15/20 Niacinamide [Endur-Amide] 500 mg PO TID 04/15/20 04/15/20 Rivaroxaban [Xarelto] 20 mg PO DAILY 04/15/20 04/15/20 Sulfamethox/Trimeth 800/160 1 tab PO .MWF 04/15/20 04/15/20 [Bactrim Ds] Rivaroxaban [Xarelto] 15 mg PO DAILY 30 Days #60 tablet 09/04/20 - Allergies Allergies/Adverse Reactions: Allergies Allergy/AdvReac Type Severity Reaction Status Date / Time codeine [Codeine] Allergy Mild Rash Verified 09/04/20 14:16 - Social History Does the pt smoke?: No Smoking Status: Never smoker Does the pt drink ETOH?: No - Immunizations Immunizations are current?: No Immunizations: TDAP >10years/unknown - POLST Patient has POLST: No PD ED PE NORMAL - Vitals Vital signs reviewed: Yes - General General: Alert and oriented X 3, No acute distress - HEENT HEENT: Atraumatic, PERRL, EOMI, Moist mucous membranes - Neck Neck: Supple, no meningeal sign - Cardiac Cardiac: RRR, No murmur, Strong equal pulses - Respiratory Respiratory: No respiratory distress, Clear bilaterally - Abdomen Abdomen: Soft, Non tender, Non distended, Other - Derm Derm: Warm and dry (No erythema of the tissues proximal to the left great toe.), Other (Stage II ulcer approximately 7 mm in diameter noted on the tip of the left great toe. No associated erythema. Mild purplish, chronic appearing discoloration is noted over the tip of the toe without discernible edema. No fluctuance. No drainage. Tissue appears healthy. No streaking. ) - Extremities Extremities: No deformity, Other (Moderate, 2+ pitting edema of the patient's entireModerate, 2+ pitting edema of the patient's entire and foot.) - Neuro Neuro: Alert and oriented X 3 - Psych Psych: Normal mood, Normal affect Results - Vitals Vitals: Vital Signs - 24 hr 09/04/20 09/04/20 14:16 16:33 Temperature 36.5 C 36.6 C Heart Rate 96 83 Respiratory 18 16 Rate Blood Pressure 153/86 H 131/78 H O2 Saturation 94 95 Oxygen O2 Source Room air - Labs Labs: Laboratory Tests 09/04/20 15:29 WBC 12.0 H RBC 4.51 L Hgb 12.2 L Hct 38.5 L MCV 85.4 MCH 27.1 MCHC 31.7 L RDW 19.9 H Plt Count 172 MPV 10.4 Neut # (Auto) 10.5 H Lymph # (Auto) 0.3 L [place] # (Auto) 0.9 Eos # (Auto) 0.1 Baso # (Auto) 0.1 Absolute Nucleated RBC 0.00 Nucleated RBC % 0.0 - Rads (name of study) US L leg Radiology: Final report received, See rad report (DVT) PD MEDICAL DECISION MAKING - ED course Complexity details: reviewed results, re-evaluated patient, considered differential, d/w patient, d/w family ED course: I had a long discussion with the patient's regarding her concern that the sore on the end of the toe was causing an infection in the patient's calf, which was causing swelling. At this point in time, I have explained to the patient's that the entire foot is of normal color, with the exception of mild purplish discoloration of the toe that appears chronic. My bigger concern is the fact that the patient has cancer, and a history of clot, and at least 3 months of no anticoagulation for this. I discussed with the that we will get an ultrasound and a CBC. CBC showed a slight elevation of the WBC count at 12. US showed extensive DVT up to femoral vein. Pt was started on Xarelto in the ED, which stated she thought he had been on for his previous clot. Pt had no respiratory complaints, and CTA yesterday had shown no clots. We have discussed the importance of follow-up within the week with either PCP or oncology. We have also discussed the usual indications for return. Departure - Departure Disposition: 01 Home, Self Care Clinical Impression: Chronic ulcer of toe of left foot Qualifiers: Non-pressure ulcer stage: limited to breakdown of skin Qualified Code(s): L97.521 - Non-pressure chronic ulcer of other part of left foot limited to breakdown of skin DVT (deep venous thrombosis) Qualifiers: DVT location: lower extremity Affected thrombotic vein of extremity: femoral Chronicity: acute Laterality: left Qualified Code(s): I82.412 - Acute embolism and thrombosis of left femoral vein Condition: Stable Instructions: ED DVT Prescriptions: Rivaroxaban [Xarelto] 15 mg PO DAILY 30 Days #60 tablet Comments: The ultrasound showed extensive clotting in your left leg veins. As such, you will need to go back on blood thinners. It is very important that you take them every day, as directed, until your doctor has cleared you to stop. If you develop chest pain or shortness of breath, you should return to the emergency department immediately. There is no evidence of infection of the toe at this time. Furthermore, the entire foot appears to have normal color, and at this point in time, there is no evidence of a skin or soft tissue infection involving the leg. You are already on antibiotics that should prevent this anyway. If you are taking your Bactrim only once a day, you may double this to twice a day if you wish for the next week. Please follow-up with your primary care physician and oncologist to further discuss your care. Discharge Date/Time: 09/04/20 17:37
[2020-09-04 15:41] LABS: BASOPHILS # (AUTO) 0.1 10^3/uL (0.0-0.1); BASOPHILS % (AUTO) 0.5 %; EOSINOPHILS # (AUTO) 0.1 10^3/uL (0.0-0.7); EOSINOPHILS % (AUTO) 0.8 %; HGB - HEMOGLOBIN 12.2 g/dL (14.0-18.0); LYMPHOCYTES # (AUTO) 0.3 10^3/uL (1.5-3.5); LYMPHOCYTES % (AUTO) 2.3 %; MEAN CORPUSCULAR HEMOGLOBIN 27.1 pg (27.0-31.0); MEAN CORPUSCULAR HGB CONC 31.7 g/dL (32.0-36.0); MEAN CORPUSCULAR VOLUME 85.4 fL (80.0-94.0); MEAN PLATELET VOLUME 10.4 fL (7.4-11.4); MONOCYTES # (AUTO) 0.9 10^3/uL (0.0-1.0); MONOCYTES % (AUTO) 7.4 %; NEUTROPHILS # (AUTO) 10.5 10^3/uL (1.5-6.6); NEUTROPHILS % (AUTO) 87.3 %; PLT - PLATELET COUNT 172 10^3/uL (130-450); RED BLOOD COUNT 4.51 10^6/uL (4.70-6.10); RED CELL DISTRIBUTION WIDTH 19.9 % (12.0-15.0)
[2020-09-04 16:34] VITALS: BP 131/78
--- NOTE | 2020-09-04 17:36 | Ultrasound Report ---
PROCEDURE: Duplex Ext Veins Left INDICATIONS: pain/swelling TECHNIQUE: Real-time imaging, as well as color and pulse Doppler interrogation, were performed of the lower extr emity deep veins from the inguinal ligament to the popliteal fossa. COMPARISON: None. FINDINGS: Occlusive thrombus is noted within the entire left superficial femoral vein, popliteal vein , posterior tibial vein, and peroneal vein. A patent superficial collaterals noted in the region of t he profunda vein. IMPRESSION: Extensive occlusive thrombus throughout the left lower extremity including the superfici al femoral vein, the popliteal vein, the posterior tibial and peroneal veins. These findings were discussed with Dr. Rosa by the claims coordinator at 5:15 PM on 09/04/2020. Reviewed by: Kelsey Wahl MD on 09/04/2020 5:35 PM PDT Approved by: Kelsey Wahl MD on 09/04/2020 5:35 PM PDT Station ID: [id number]
[2020-09-04] MEDS ORDERED: RIVAROXABAN 10 MG TABLET PO SCH (18:00)
[2020-09-05] MEDS ORDERED: RIVAROXABAN 15 MG TABLET PO SCH (17:00)
== END 2020-09-04 17:37 | disposition home or self-care (01) ==
LOC: ED 14:14
DX: L97.521 Non-pressure chronic ulcer of other part of left foot limited to breakdown of skin (principal); I82.412 Acute embolism and thrombosis of left femoral vein; C14.0 Malignant neoplasm of pharynx, unspecified; Z79.899 Other long term (current) drug therapy
CPT/HCPCS: 36415; 85025; 99284; 99285

== ENCOUNTER 2020-12-08 16:08 | Emergency (ER) | payer MEDICARE, OTHER ==
--- NOTE | 2020-12-08 16:29 | ED Physician Documentation ---
PD HPI LOWER EXT INJURY - Stated complaint Stated Complaint: FALL, LEFT LEG PX - Chief complaint Chief Complaint: Trauma Ext - History obtained from History obtained from: Patient, Family () - Additional information Additional information: 70-year-old gentleman with active head and neck cancer and recent DVT in the right leg on Xarelto fell a week ago. It was a ground-level fall. He simply tripped because he was looking at his phone. He landed on his knee and has persistent left knee pain. Family is worried because the entire leg is bruised and swollen. Review of Systems Constitutional: reports: Reviewed and negative Nose: reports: Reviewed and negative Throat: reports: Reviewed and negative Cardiac: reports: Reviewed and negative PD PAST MEDICAL HISTORY - Past Medical History Cardiovascular: High cholesterol Respiratory: COPD, Shortness of breath Neuro: Other Endocrine/Autoimmune: HyPOthyroidism GI: GERD : Benign prostate hypertrophy, Retention, Incontinence, Nocturia HEENT: Other Psych: None Musculoskeletal: Osteoarthritis Derm: Other - Past Surgical History Past Surgical History: Yes General: Colonoscopy, EGD, Other Ortho: Arthroscopic surgery, Other Neuro: Other HEENT: Tonsil/Adenoidectomy, Other Derm: Skin cancer surgery - Present Medications Home Medications: Ambulatory Orders Medication Instructions Recorded Confirmed Doxycycline Hyclate 100 mg JT BID 10/26/20 10/26/20 Finasteride [Proscar] 5 mg JT DAILY 10/26/20 10/26/20 Levothyroxine Sodium [Synthroid] 88 mcg JT DAILY 10/26/20 10/26/20 Omeprazole Magnesium 20 mg JT DAILY 10/26/20 10/26/20 Prednisone 25 mg JT . 10/26/20 10/26/20 Rivaroxaban [Xarelto] 20 mg JT DAILY 10/26/20 10/26/20 Sulfamethoxazole 800 mg JT . 10/26/20 10/26/20 predniSONE [Deltasone] 30 mg JT . 10/26/20 10/26/20 - Allergies Allergies/Adverse Reactions: Allergies Allergy/AdvReac Type Severity Reaction Status Date / Time codeine [Codeine] Allergy Mild Rash Verified 12/08/20 16:11 - Social History Does the pt smoke?: No Smoking Status: Never smoker Does the pt drink ETOH?: No - Immunizations Immunizations are current?: No Immunizations: TDAP >10years/unknown - POLST Patient has POLST: No PD ED PE NORMAL - Vitals Vital signs reviewed: Yes - General General: Alert and oriented X 3, No acute distress - Neck Neck: Supple, no meningeal sign, No bony TTP - Extremities Extremities: Other (There is an effusion of the left knee with mild suprapatellar tenderness. The leg is ecchymotic from the medial upper thigh down with significant discoloration down to the foot consistent with blood loss into subcutaneous tissues. Also mildly tender over the medial malleolus of the left ankle.) - Neuro Neuro: Alert and oriented X 3, Normal speech Results - Vitals Vitals: Vital Signs - 24 hr 12/08/20 12/08/20 16:11 17:26 Temperature 36.8 C 36.9 C Heart Rate 99 80 Respiratory 19 19 Rate Blood Pressure 154/90 H 170/97 H O2 Saturation 100 100 Oxygen O2 Source Room air - Labs Labs: Laboratory Tests 12/08/20 16:32 Hgb 12.8 L Hct 39.7 L PD MEDICAL DECISION MAKING - ED course ED course: 70-year-old gentleman with extensive ecchymosis that is posttraumatic of the left leg. Relevant x-rays, left knee and left ankle interpreted contemporaneously by me were negative for fractures. DVT is considered but he is anticoagulated and nothing in the history or physical to suggest this. Departure - Departure Disposition: 01 Home, Self Care Clinical Impression: Adequate anticoagulation on anticoagulant therapy Contusion of left knee Qualifiers: Encounter type: initial encounter Qualified Code(s): S80.02XA - Contusion of left knee, initial encounter Contusion of left ankle Qualifiers: Encounter type: initial encounter Qualified Code(s): S90.02XA - Contusion of left ankle, initial encounter Traumatic ecchymosis of multiple sites of left lower extremity Qualifiers: Encounter type: initial encounter Qualified Code(s): S80.12XA - Contusion of left lower leg, initial encounter Condition: Stable Record reviewed to determine appropriate education?: Yes Instructions: ED Contusion Soft Tissue Comments: Recheck with your doctor in 1 week. Return if worse Discharge Date/Time: 12/08/20 17:32
[2020-12-08 16:35] LABS: HGB - HEMOGLOBIN 12.8 g/dL (14.0-18.0)
--- NOTE | 2020-12-08 17:04 | XRAY Report ---
PROCEDURE: Knee 4 View LT INDICATIONS: knee injury TECHNIQUE: 4 views of the left knee(s) were acquired. COMPARISON: None. FINDINGS: Bones: No fractures or dislocations. No suspicious bony lesions. Mild tricompartmental osteoarthrit is. Soft tissues: No joint effusion. No suspicious soft tissue calcifications. Marked soft tissue swell ing noted anterior and superior to the knee joint. IMPRESSION: No fracture. No acute osseous lesion. If there persistent symptoms or continued clinical concern for pathology, then repeat plain film radiographs (7-10 days) or advanced imaging (CT, MR, bone scan) durga uld be considered for further evaluation. Reviewed by: Danielle Watts MD, PhD on 12/08/2020 4:03 PM [facility] Approved by: Danielle Watts MD, PhD on 12/08/2020 4:03 PM [facility] Station ID: [id number]
--- NOTE | 2020-12-08 17:06 | XRAY Report ---
PROCEDURE: Ankle 3 View LT INDICATIONS: ankle inj TECHNIQUE: 3 views of the ankle were acquired. COMPARISON: None FINDINGS: Bones: No fractures or dislocations. Ankle mortise is normally aligned. No suspicious bony lesions . Soft tissues: No tibiotalar joint effusion. Achilles tendon appears normal. Lateral soft tissue swe lling is noted and ligamentous injury cannot be excluded. IMPRESSION: No fracture. No osseous lesion. If there are persistent symptoms or continued clinical concern for pa thology, then repeat plain film radiographs (7-10 days) or advanced imaging (CT, MR, bone scan) shoul d be considered for further evaluation. Reviewed by: Danielle Watts MD, PhD on 12/08/2020 4:05 PM [facility] Approved by: Danielle Watts MD, PhD on 12/08/2020 4:05 PM [facility] Station ID: [id number]
[2020-12-08 17:27] VITALS: BP 170/97
== END 2020-12-08 17:32 | disposition home or self-care (01) ==
LOC: ED 16:08
DX: S80.02XA Contusion of left knee, initial encounter (principal); S90.02XA Contusion of left ankle, initial encounter; S80.12XA Contusion of left lower leg, initial encounter; W01.0XXA Fall on same level from slipping, tripping and stumbling without subsequent striking against object, initial encounter; Y93.01 Activity, walking, marching and hiking; M17.12 Unilateral primary osteoarthritis, left knee; C14.0 Malignant neoplasm of pharynx, unspecified; Z86.718 Personal history of other venous thrombosis and embolism; Z79.01 Long term (current) use of anticoagulants
CPT/HCPCS: 36415; 85014; 85018; 99283; 99284

== ENCOUNTER 2020-12-29 08:00 | Outpatient (CLI) | payer MEDICARE, OTHER ==
[2020-12-29 13:07] LABS: BASOPHILS % (AUTO) 0.3 %; EOSINOPHILS # (AUTO) 0.1 10^3/uL (0.0-0.7); EOSINOPHILS % (AUTO) 0.4 %; HGB - HEMOGLOBIN 13.1 g/dL (14.0-18.0); LYMPHOCYTES # (AUTO) 0.7 10^3/uL (1.5-3.5); LYMPHOCYTES % (AUTO) 6.1 %; MEAN CORPUSCULAR HEMOGLOBIN 29.6 pg (27.0-31.0); MEAN CORPUSCULAR HGB CONC 31.6 g/dL (32.0-36.0); MEAN CORPUSCULAR VOLUME 93.5 fL (80.0-94.0); MEAN PLATELET VOLUME 11.5 fL (7.4-11.4); MONOCYTES # (AUTO) 0.9 10^3/uL (0.0-1.0); MONOCYTES % (AUTO) 7.8 %; NEUTROPHILS # (AUTO) 9.6 10^3/uL (1.5-6.6); NEUTROPHILS % (AUTO) 83.9 %; PLT - PLATELET COUNT 217 10^3/uL (130-450); RED BLOOD COUNT 4.43 10^6/uL (4.70-6.10); RED CELL DISTRIBUTION WIDTH 16.8 % (12.0-15.0); WHITE BLOOD COUNT 11.5 x10^3/uL (4.8-10.8)
[2020-12-29 13:52] LABS: ALBUMIN 3.6 g/dL (3.2-5.5); ALBUMIN/GLOBULIN RATIO 1.3 (1.0-2.2); ALKALINE PHOSPHATASE 48 IU/L (42-121); ALT ALANINE AMINOTRANSFERASE 23 IU/L (10-60); AST ASPARTATE AMINOTRANSFERASE 19 IU/L (10-42); BILIRUBIN,TOTAL 0.6 mg/dL (0.2-1.0); BUN - BLOOD UREA NITROGEN 32 mg/dL (6-20); CALCIUM 9.4 mg/dL (8.5-10.3); CARBON DIOXIDE - CO2 27 mmol/L (21-32); CHLORIDE 97 mmol/L (101-111); CHOLESTEROL 347 mg/dL; CREATININE 1.2 mg/dL (0.6-1.2); GLUCOSE 89 mg/dL (70-100); HDL CHOLESTEROL 58 mg/dL; TOTAL PROTEIN 6.4 g/dL (6.7-8.2)
[2020-12-29 15:28] LABS: LDL CHOLESTEROL,DIRECT 175 mg/dL
== END 2020-12-29 23:59 | disposition home or self-care (01) ==
LOC: LAB.WCP 08:00
PROVIDERS: ATTEND Family Medicine
DX: E78.5 Hyperlipidemia, unspecified (principal); E03.9 Hypothyroidism, unspecified; I82.492 Acute embolism and thrombosis of other specified deep vein of left lower extremity
CPT/HCPCS: 36415; 80053; 80061; 83721; 84443; 85025

== ENCOUNTER 2021-01-11 15:02 | Outpatient (CLI) | payer MEDICARE, OTHER ==
[2021-01-11] MEDS ORDERED: IOVERSOL 320 100 ML VIAL IVP ONE (16:34)
--- NOTE | 2021-01-11 16:47 | CT Report ---
PROCEDURE: CHEST W INDICATIONS: HEAD AND NECK CA CONTRAST: IV CONTRAST: Optiray 320 ml: 100 PO CONTRAST: *NO PO CONTRAST TECHNIQUE: After the administration of intravenous contrast, 5 mm thick sections acquired from the pulmonary api nishant to the posterior costophrenic angles. 7 mm thick coronal MIP reformats were acquired. For radia tion dose reduction, the following was used: automated exposure control, adjustment of mA and/or kV according to patient size. COMPARISON: CT chest 09/03/2020, 03/11/2019. FINDINGS: Image quality: Excellent. Lungs and pleura: Fibrotic change at the lung apices is similar the prior exams. Mild emphysematous c hange. Mild dependent atelectasis. A few calcified granuloma. No mass or new or enlarging pulmonary n odules. The nodule seen at the right minor fissure on CT from 2018 is no longer present. No pleural e ffusions or pneumothorax. Central and peripheral airways are patent and normal in caliber. Mediastinum: Heart size is normal. No pericardial effusion. No mediastinal or hilar adenopathy by size criteria. Thoracic aorta and central pulmonary arteries are normal in size. Esophagus is hue l in caliber. No hiatal hernia. Bones and chest wall: No suspicious bony lesions. L1 compression fracture is unchanged. T9 intraosse ous hemangioma.. No axillary or supraclavicular adenopathy by size criteria. Thyroid gland is atrop hic appearing. Post surgical change in the right neck. Please see separately dictated same day CT so ft tissue neck. Abdomen: Simple cyst in the right lobe of the liver measuring 5.6 cm. Additional hypodensity is also unchanged. Percutaneous gastrostomy tube partially visualized. Visualized upper abdominal solid organ s appear normal. Upper abdominal bowel loops are normal in caliber. IMPRESSION: No metastatic disease identified in the chest. Stable fibrotic change at the lung apices likely due to prior radiation. Stable L1 compression fracture. Reviewed by: Dom Velez MD on 01/11/2021 4:45 PM PST Approved by: Dom Velez MD on 01/11/2021 4:45 PM PST Station ID: [id number]
--- NOTE | 2021-01-11 16:54 | CT Report ---
PROCEDURE: SOFT TISSUE NECK W INDICATIONS: HEAD AND NECK CA CONTRAST: IV CONTRAST: Optiray 320 ml: 100 PO CONTRAST: *NO PO CONTRAST TECHNIQUE: After the administration of intravenous contrast, 3.0 mm axial sections acquired from the sella to th e aortic arch. Additional oblique axial 3.0 mm sections acquired through the pharynx. 3 mm thick co nathan reformats were generated. For radiation dose reduction, the following was used: automated exp osure control, adjustment of mA and/or kV according to patient size. COMPARISON: CT neck 09/03/2020. FINDINGS: Image quality: Excellent. Lymph nodes: No enlarged lymph nodes seen throughout the neck. Vessels: Visualized vasculature appears patent. Neck spaces: Right neck postsurgical changes are stable. Fatty infiltration of the tongue is again n oted. 6 mm low-attenuation focus within the posterior right lateral trachea seen on series 2 image 99 . It is noted this was present on 09/03/2020 exam, measuring approximately 5 mm. It is present measur ing approximately 4 mm on 05/26/2020 and not visualized on more remote prior exams. The vocal cords, f alse vocal cords, pyriform sinuses, epiglottis, vallecula, and tongue base all appear normal. Extram ucosal spaces appear unremarkable. Glands: The parotid and submandibular glands appear normal. Miscellaneous: Visualized brain and orbits appear normal. Lung apices appear clear. Superficial so ft tissues appear normal. Bones: No suspicious bony lesions. Visualized sinuses and mastoids appear unremarkable. Degenerativ e changes are present within the visualized cervical and thoracic spine. IMPRESSION: 1. Stable postsurgical and postradiation changes within the neck. No acute change. 2. Focus of low attenuation within the posterior lateral right trachea as above which has become mini lazaro more prominent since 2019. While this could represent a focus of sequestered secretions, mucosa l lesion cannot be definitively excluded. Further evaluation with ENT and direct visualization is rec ommended to exclude underlying pathology. Reviewed by: Eleonora Wasserman MD on 01/11/2021 4:52 PM PST Approved by: Eleonora Wasserman MD on 01/11/2021 4:52 PM PST Station ID: [id number]
== END 2021-01-11 15:03 | disposition home or self-care (01) ==
LOC: DI 15:02
PROVIDERS: ATTEND Internal Medicine Hematology & Oncology
DX: C76.0 Malignant neoplasm of head, face and neck (principal); J84.10 Pulmonary fibrosis, unspecified; M48.56XA Collapsed vertebra, not elsewhere classified, lumbar region, initial encounter for fracture
CPT/HCPCS: 70491; 71260; Q9967

== ENCOUNTER 2021-04-27 12:08 | Outpatient (CLI) | payer MEDICARE, OTHER ==
[2021-04-27] MEDS ORDERED: IOVERSOL 320 100 ML VIAL IVP ONE ×2 (12:14→14:40)
[2021-04-27 12:39] LABS: CALCIUM 9.5 mg/dL (8.5-10.3); POTASSIUM 3.7 mmol/L (3.5-5.0)
--- NOTE | 2021-04-27 13:40 | CT Report ---
PROCEDURE: SOFT TISSUE NECK W INDICATIONS: Pharyngeal mass CONTRAST: IV CONTRAST: Optiray 320 ml: 100 PO CONTRAST: *NO PO CONTRAST TECHNIQUE: After the administration of intravenous contrast, 3.0 mm axial sections acquired from the sella to th e aortic arch. Additional oblique axial 3.0 mm sections acquired through the pharynx. 3 mm thick co nathan reformats were generated. For radiation dose reduction, the following was used: automated exp osure control, adjustment of mA and/or kV according to patient size. COMPARISON: 01/11/[address] FINDINGS: Image quality: Excellent. Lymph nodes: There is lymphadenopathy in the sternoclavicular notch which is new from the prior study . The largest lymph node measures approximately 9 mm short axis diameter and laxity central fatty hil um, also having some adjacent soft tissue stranding. Additional non-threshold enlarged lymph nodes ar e present in this station which have also enlarged 01/11/2021. A left paratracheal lymph node on series 3 image 84 measures 7 mm in short axis diameter, previously 4 mm. A right paratracheal lymph node mo re inferiorly within the mediastinum measures 6 mm short axis diameter, previously 3 mm. Vessels: Visualized vasculature appears patent. Neck spaces: A metallic BB marker was placed on the skin of the left neck inferior to the left jin bular angle. Subjacent to this BB marker there is infiltrative soft tissue density in the left pharyn geal and hypopharyngeal wall, which is new from the 01/11/2021 exam. The abnormality extends from the l evel of the left pharyngeal tonsil inferiorly to the level of the hyoid. The mass measures approximat gabriel 2.1 x 3.7 cm maximum axial dimension on series 3 image 49 and spans a craniocaudal extent of 3.7 cm (series 7 image 49). The abnormality is difficult to delineate from radiation related increased at tenuation of the regional fat, however there is a definite increase in the size of the soft tissue at tenuation in this region when compared with the January 2021 exam. Glands: The parotid and submandibular glands appear normal. The thyroid is normal in size and there are no incidental findings. Miscellaneous: Visualized brain and orbits appear normal. Stable radiation changes in the lung apice s. Superficial soft tissues appear normal. Bones: No suspicious bony lesions. Visualized sinuses and mastoids appear unremarkable. IMPRESSION: New soft tissue density mass in the left pharyngeal and hypopharyngeal wall is suspicious for recurre nce. Direct visualization recommended along with possible tissue sampling. Increased size of multiple lymph nodes in the sternoclavicular notch and upper mediastinum, suspiciou s for metastatic disease. These would be amenable to ultrasound-guided biopsy if clinically warranted . Reviewed by: Rigo Bueno MD on 04/27/2021 1:39 PM PDT Approved by: Rigo Bueno MD on 04/27/2021 1:39 PM PDT Station ID: [id number]
--- NOTE | 2021-04-27 13:50 | CT Report ---
PROCEDURE: CHEST W INDICATIONS: PHARYNGEAL MASS CONTRAST: IV CONTRAST: Optiray 320 ml: 100 PO CONTRAST: *NO PO CONTRAST TECHNIQUE: After the administration of intravenous contrast, 5 mm thick sections acquired from the pulmonary api nishant to the posterior costophrenic angles. 7 mm thick coronal MIP reformats were acquired. For radia tion dose reduction, the following was used: automated exposure control, adjustment of mA and/or kV according to patient size. COMPARISON: None. FINDINGS: Image quality: Excellent. This study does not include pharyngeal evaluation. Please refer to [facility] soft tissue neck CT scanning for evaluation of that area. Lungs and pleura: No acute air space opacities note is made of mild interstitial prominence over the upper lungs bilaterally, likely reflecting post radiation change. Lung parenchyma more inferiorly a mild centrilobular emphysema pattern appears present, and no pulmonary mass lesion or evidence of act renee pneumonia at this time is found.. No pleural effusions or pneumothorax. Central and peripheral airways are patent and normal in caliber. Note is made of adjacent filling defects within the trachea l airway seen at the thoracic inlet level, series 4 image 56 and series 4 image 32 on the right. The appearance is more likely to represent mucous debris by appearance. A single slightly smaller abnorma lity was present in that area, however, 01/11/2021. Mediastinum: Heart size is normal. No pericardial effusion. No mediastinal or hilar adenopathy by size criteria. Thoracic aorta and central pulmonary arteries are normal in size. Esophagus is hue l in caliber. No hiatal hernia. Bones and chest wall: No suspicious bony lesions. No vertebral body compression fractures. No axil gaurav or supraclavicular adenopathy by size criteria. The thyroid is normal in size and there are no incidental findings.. Abdomen: Visualized upper abdominal solid organs appear normal. Upper abdominal bowel loops are nor mal in caliber. Gastrostomy tube in normal position at the epigastrium area. IMPRESSION: 1. No pulmonary mass lesion seen. Apical interstitial prominence in appearance and with a distributio n likely reflecting post radiation change in this patient with apparent prior radical neck dissection on the right partially visualized by this study. 2. An unexpected finding is the presence of what appears to be some form of debris within the trachea l airway at the thoracic inlet level, however a similar appearance was present on recent CT scanning 01/11/2021, slightly smaller in size, and for this reason direct visualization may be warranted, versus short-term follow-up assessment targeted to that area. 3. Gastrostomy tube in normal position. Apparent right lower radical neck dissection, incompletely vi sualized by this chest CT study. Please also refer to dedicated soft tissue neck CT scanning performe d same day. Reviewed by: Aashish Dutton MD on 04/27/2021 1:49 PM PDT Approved by: Aashish Dutton MD on 04/27/2021 1:49 PM PDT Station ID: [id number]
== END 2021-04-27 12:09 | disposition home or self-care (01) ==
LOC: LAB 12:08
PROVIDERS: ATTEND Physician Assistant Medical
DX: C76.0 Malignant neoplasm of head, face and neck (principal); J39.2 Other diseases of pharynx
CPT/HCPCS: 36415; 70491; 71260; 80048; Q9967

== ENCOUNTER 2021-05-08 13:00 | Outpatient (CLI) | payer MEDICARE, OTHER ==
--- NOTE | 2021-05-08 17:12 | CONSULTATION NOTE ---
Palliative Care Follow Up - Referral Referring Provider: Dr. 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 He originally 1998 underwent a right modified radical neck dissection, followed by concurrent chemoradiation and chemotherapy. He had a recurrence diagnosed in April 2018, which he received nivolumab but was discontinued and 08/2019 when he developed severe immunotherapy reaction of bullous pemphigoid, with severe blisters and now is on prednisone and Dupixent every 2 weeks with good control. He has been dependent on PEG tube feedings since diagnosis, has had a variety of complications, with increased trouble with secretions, intermittent dehydration, development of PE a little over a year ago, and intermittent dizziness. His functional status is marginal, he is ambulatory but deconditioned, and has had memory problems with forgetfulness over the last couple years, which is added to the stress regarding medication adherence and tension between he and his . In February of this year, he started having increased pain particularly on his left side with some swelling, originally thought it was some bad teeth, and ended up having dental work but not resolution of the pain. This did not relieve the pain, his he was also feeling poorly, sleeping more, would get behind of his feedings and fluids. He did have a CT scan of the soft tissue of the neck, and found a pharyngeal mass, measuring approximately 2.1 x 3.7 cm and though the reading reads it is difficult to delineate from the radiation related increase attenuation of the regional fat, there is definitely an increase in the region compared to the January 2021 exam, this exam was done on 04/27/2021. It also durga wed increased size of multiple lymph nodes in the sternoclavicular notch and upper mediastinum suspicious for metastatic disease. He met with 3 oncologist, and biopsy would be quite involved with significant risks, and would not change his therapeutic options. He has unresectable disease unfortunately in a previously radiated field, and because of his severe toxicity to immunotherapy his only options would include cytotoxic chemotherapy. They do understand the goals of therapy are for palliative management of his symptoms, and patient is somewhat resigned to his current situation. Their goals currently are to manage his pain, and improve quality of life measures. Patient's pain is fairly localized in the left pharyngeal area in his throat radiating up through his left ear into the temporal area, he has been using intermittent oxycodone, 2-3 in 24 hours supplemented by Tylenol of unknown quantity but appears to be around 3000 mg in 24 hours. Patient reports the oxycodone last about 3 to 4 hours, then pain returns, is very sharp and shooting and patient often sleeps to avoid discomfort. It is most severe upon awakening, he is sleeping more, feels and his pain is better controlled he is awake and more engaged, patient has short-term memory issues, so concerned about his ability to follow regimented schedule. Patient's pain is persistent and poorly controlled. Past Medical History: BPH, PE, hypothyroidism, melanoma s/p resection, right shoulder surgery, left shoulder surgery, right inguinal hernia repair, Social History - Living Situation Living arrangement: At home Living Situation: With spouse/s.o. Support System: Patient had been previously working at [employer], has not since the pandemic. He lives with his Hina, they have been for 44 years, she herself has a history of lung cancer. Most of their family is back in [place], they do have a few family members here to provide support but Hina is feeling quite overwhelmed both between her own health issues and patient's worsening symptoms and now recurrent disease. They have multiple financial stressors, and patient is fairly independent though not always a good decision maker with his mild cognitive deficits. Medications/Allergies - Medications Home Medications: Ambulatory Orders Medication Instructions Recorded Confirmed Finasteride [Proscar] 5 mg JT DAILY 10/26/20 05/09/21 Levothyroxine Sodium [Synthroid] 150 mcg JT DAILY 10/26/20 05/09/21 Omeprazole Magnesium 20 mg JT DAILY 10/26/20 05/09/21 Rivaroxaban [Xarelto] 20 mg JT DAILY 10/26/20 05/09/21 predniSONE [Prednisone] 10 mg JT DAILY 10/26/20 05/09/21 Acetaminophen [Acetaminophen Extra 500 - 1,000 mg JT Q6HR PRN MDD 3000 05/09/21 05/09/21 Strength] Atorvastatin [Lipitor] 10 mg PO DAILY 05/09/21 05/09/21 Dupilumab [Dupixent Pen] 300 mg SQ [id number] 05/09/21 05/09/21 Senna [Senokot] 1 tab JT BID MDD 6 05/09/21 05/09/21 fentaNYL 12 MCG PATCH [Duragesic 12 mcg TOP .72 HOURS 05/09/21 05/09/21 12mcg patch] oxyCODONE [Roxicodone] 5 mg PO Q4HR PRN 05/09/21 05/09/21 - Allergies Allergies/Adverse Reactions: Allergies Allergy/AdvReac Type Severity Reaction Status Date / Time codeine [Codeine] Allergy Mild Rash Verified 12/08/20 16:11 Review of Systems - Constitutional Constitutional: reports: Fatigue (worsening; sleeping most of the time), Weakness, Weight stable (uses both blended food 2 x a day; supplement 4 x; 1 liter water) - Eyes Eyes: reports: Vision loss - Ears, Nose & Throat Ears, Nose & Throat: reports: Ear pain (left attributed to mass), Nasal congestion, Hoarseness, Dental decay (recent removal of 3 teeth) - Cardiovascular Cardiovascular: reports: Lightheadedness, Exertional dyspnea, Decr. exercise tolerance - Respiratory Respiratory: reports: Cough, SOB with exertion. denies: Hemoptysis, SOB at rest - Gastrointestinal Gastrointestinal: reports: Constipation (no BM several days) - Genitourinary Genitourinary: reports: Frequency - Musculoskeletal Musculoskeletal: reports: Stiffness, Muscle weakness - Integumentary Integumentary: reports: Rash (mostly controlled; faded pink scarred areas; tender spot still on back), Dryness - Neurological Neurological: reports: General weakness, Dizziness, Memory problems - Psychiatric Psychiatric: denies: Depression, Anxiety - Endocrine Endocrine: reports: Hypothyroidism - Hematologic/Lymphatic Hematologic/Lymph: reports: Bruising. denies: Recurrent infections - All Other Systems All Other Systems: reports: Reviewed and negative Physical Exam - Vital Signs Temperature: 97.3 C Pulse Rate: 96 Respiratory Rate: 18 O2 Saturation: 91 (ra @ rest) Blood Pressure: 92/42 - Physical Exam General Appearance: positive: No acute distress, Alert Eyes Bilateral: positive: Normal inspection ENT: positive: Other (large amount of oral secretions; suctions regularly; can cough and clear) Neck: positive: Trachea midline, Stiff neck (limited ROS with right radical neck), Other (mild tender area of swelling left neck area) Cardiovascular: positive: Regular rate & rhythm Respiratory: positive: Diminished throughout. negative: Wheezes, Rales, Rhonchi Abdomen: positive: Non-tender, Nml bowel sounds, Distended Skin: positive: Pallor, Dryness, Bruising, Rash, Other (scabbed area of 4 cm distal from JT; reports is from drainage; improved) Extremities: positive: No pedal edema Neurologic/Psychiatric: positive: Oriented x3, Weakness, Slurred/abnml speech (mechanical; voice hoarse), Flat affect Palliative Care - POLST Patient has POLST: No Pain: Pain worsening, Comment (see HPI) Feelings of wellbeing/Perceived Quality of Life: Good, Acceptable, Worsening Sleep: Sleeps well Constipation: Yes, Opoid induced, Unmanaged Performance Status: Patient with dizziness at baseline, needs to be careful when ambulating around. Does have lower extremity weakness and deconditioning. Is at high risk for falls has not fallen recently. Does have a cane and walker which is been encouraged to use, but does not like to. Is able to manage his own ADLs. - Palliative Care Discussion: Both and patient understand the seriousness of his condition, though have not been given any prognostic information. Hina is feeling overwhelmed and tearful, patient is somewhat pragmatic. Short-term goals are to manage his pain, patient has been sleeping a significant amount of time, is attributing some of this to avoiding pain. Unfortunately that he gets behind in his fluids, this is quite frustrating for his . They have been feeling much more poor with this heat wave, and a very fearful about how they are going to manage long- term. They do have a daughter who is a ER nurse, has been out recently, and is available by phone on a daily basis, will need to further explore resources for support. Impression and Recommendations - Palliative Care Impression: This is a 71-year-old gentleman with recurrent oropharyngeal cancer, with worsening pain poorly controlled. Patient has had declining functional status, sleeping more, currently his bullous pemphigoid is managed on his prednisone and dupixent. Patient remains at high risk for recurrent dehydration related to poor adherence to his feeding/fluid schedule. Palliative care asked to provide support for progressive disease and pain and symptom management Recommendations/Counseling Done: 1. Pain of neoplastic origin. Patient has poorly controlled pain, with intermittent oxycodone and acetaminophen. After much discussion and review of options, will initiate fentanyl 12 mcg patch, and continue use of oxycodone for breakthrough pain. Extensive teaching instructions were provided as well as written instructions, and Narcan for safety. Patient has been hesitant to maximize pain medication secondary to wants to continue to drive, instructed not to drive at this point, can reevaluate when pain well controlled and patient without side effects of medication. 2. Constipation. Patient has not been doing any kind of bowel support for opioids, will initiate senna concentrate 8.6 mg 1 tab twice daily, with titration to effect. 3. Hypotension. Patient has been sleeping more, he attributes to worsening pain. Hopefully with pain better controlled, patient will be more awake and engaged. He is quite deconditioned, has not been adherent are consistent with his fluid/feedings. Counseling provided regarding strategies to continue to particularly in this hot weather, meet fluid/food needs. Patient at high risk for for haylie secondary to dizziness. 4, Recurrent oropharyngeal squamous cell carcinoma. Both and patient understanding at this point in time burdens outweigh benefits for biopsy for confirmation, though imaging, clinical symptoms, do support recurrent disease. Patient quite pragmatic, feeling overwhelmed and tearful, psychosocial support provided with review of ongoing palliative care support. 5. Bullous pemphigoid. Patient's current regimen of prednisone 10 mg and Dupixent every two weeks currently has it controlled. Patient with a few tender spots, but no open blisters, does have some extensive scarring. 6. Advanced care planning. Will follow up with Dr. Mcdonnell regarding possible prognostic variables, patient does appear to have had both functional decline as well as worsening symptom burden over the last several months, will continue to explore advanced care planning. Patient has been fairly adamant in the past, but does recognize the seriousness of his illness at this point in time. Did explore concerns of both myself and , regarding support for end-of-life care, though both feel overwhelmed to the thought of relocating closer to daughter. 60 minutes with greater than 50% of this done in counseling regarding pain and symptom management, psychosocial support, will continue to follow with palliative care on a regular basis, given high symptom burden.
== END 2021-05-08 13:01 | disposition home or self-care (01) ==
LOC: PC 13:00
PROVIDERS: ATTEND Nurse Practitioner Adult Health
DX: Z51.5 Encounter for palliative care (principal); G89.3 Neoplasm related pain (acute) (chronic); C10.3 Malignant neoplasm of posterior wall of oropharynx; K59.03 Drug induced constipation; T40.2X5A Adverse effect of other opioids, initial encounter; I95.9 Hypotension, unspecified; L12.0 Bullous pemphigoid; T50.995A Adverse effect of other drugs, medicaments and biological substances, initial encounter; Z93.1 Gastrostomy status
CPT/HCPCS: 99350

== ENCOUNTER 2021-05-17 11:45 | Outpatient (CLI) | payer MEDICARE, OTHER ==
--- NOTE | 2021-05-17 17:58 | CONSULTATION NOTE ---
Palliative Care Follow Up - Referral Referring Provider: Dr. 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 Please see 05/08 for more extensive PHI. Patient's most recent recurrence was diagnosed in 2018, which he received nivolumab but was discontinued on 08/2019 when he did develop severe immunotherapy reaction of bullous pemphigoid, fortunately finally his severe blisters are controlled on prednisone 10 mg and Dupixent every 2 weeks. Patient was having increased pain of this year in February, with some swelling, originally thought to be bad teeth. He had some dental work but did not resolve the pain, he has continued to feel poorly, sleep more and intermittently gets dehydrated as he gets behind in his feedings of fluids. He did have a CT scan of the soft tissue of the neck and was found a pharyngeal mass measuring approximately 2.4 x 3.67 cm but it was difficult to delineate from all his postop radiation, right next dissection, but did show increased size in the region compared to January 2021, this was done on 04/1720. It also showed increased size of multiple lymph nodes in the sternoclavicular notch and upper mediastinum suspicious for metastatic disease, he had been hoping to get biopsy, as he has been quite a bit of complications, and in the end not recommended secondary to his high surgical risk. Patient's pain is actually fairly localized in the left pharyngeal area, in the throat radiating up through his left ear and to taoist area, he has been using intermittent oxycodone. We did start him on some fentanyl when I saw him on 04/15/20 in hopes to get more persistent pain relief. Restarted at low dose, with oxycodone for breakthrough pain, he did not receive a significant amount of relief, he also got quite anxious, thought he was having allergic reaction after 5 or 6 days, and ended up in the ED. In the emergency room they did give him high-dose dexamethasone and some Toradol with relief of both pain and his distress, they also gave him humidified air and was able to loosen his se cretions. He had been having increased trouble with talking, which leads to voice strain and cough. At that time he had another CT scan unfortunately they did not have a comparison at that time and saw again the soft tissue thickening of the left lateral pharyngeal wall. There was lots of distress on the 's part, as patient does have a bad short-term memory, they had prescribed Toradol and he is on Xarelto as well as prednisone and high risk for GI bleed. What is interesting in the last 24 hours is patient's pain has continued to be controlled, he is not taking any oxycodone, nor Tylenol. It is just starting again in that left temporal area. Reports it is significantly less. His throat does feel better after he was able to clear the secretions with the humidified air. We did discuss at length possibly recreating and softening that area from irritation with use of Mucomyst and normal saline, patient is keen to give it a try. Patient also has unclear if he ripped the patch off or if he had a localized reaction to the fentanyl in his right upper chest, he has no similar reaction from where it was on his left chest. At this point in time we will discontinue the fentanyl, schedule acetaminophen, he is not to take Toradol, and see if keeping area moist and irritation down will help. Of note patient had felt like his throat was closing and he was unable to breathe, subjectively. reports his O2 sats were fine and he was not showing any respiratory distress on observation, but she did take him to the ED given his complaints. Past Medical History: BPH, PE, DVT left calf, hypothyroidism, melanoma s/p resection, right shoulder surgery, left shoulder surgery, right neck dissection for original cancer 89, right inguinal hernia repair Social History - Living Situation Living arrangement: At home Living Situation: With spouse/s.o. Support System: Patient been previously working at [employer], has not returned since the pandemic. He lives with his Hina, they have been for 44 years, she herself has a history of lung cancer. Most of the family is back in [place], Hina is feeling much more overwhelmed both between her own health issues and patient's worsening symptoms and trying to advocate for him as he has difficulty both with his voice and also his memory. They have multiple financial stressors, patient is fairly independent does not always a good decision maker and has mild cognitive deficits Medications/Allergies - Medications Home Medications: Ambulatory Orders Medication Instructions Recorded Confirmed Finasteride [Proscar] 5 mg JT DAILY 10/26/20 05/18/21 Levothyroxine Sodium [Synthroid] 150 mcg JT DAILY 10/26/20 05/18/21 Omeprazole Magnesium 20 mg JT DAILY 10/26/20 05/18/21 Rivaroxaban [Xarelto] 20 mg JT DAILY 10/26/20 05/18/21 predniSONE [Prednisone] 10 mg JT DAILY 10/26/20 05/18/21 Acetaminophen [Acetaminophen Extra 1,000 mg JT TID MDD 3000 05/09/21 05/18/21 Strength] Atorvastatin [Lipitor] 10 mg PO DAILY 05/09/21 05/18/21 Dupilumab [Dupixent Pen] 300 mg SQ [id number] 05/09/21 05/18/21 Senna [Senokot] 1 tab JT BID MDD 6 05/09/21 05/18/21 oxyCODONE [Roxicodone] 5 - 10 mg PO Q3HR PRN 05/09/21 05/18/21 Acetylcysteine [Acetadote] 1 vial INH BID 05/18/21 05/18/21 Naloxone HCl [Narcan] 4 mg FAM ONCE PRN 05/18/21 05/18/21 Sodium Chloride [Normal Saline] 3 ml INH Q4HR PRN 05/18/21 05/18/21 - Allergies Allergies/Adverse Reactions: Allergies Allergy/AdvReac Type Severity Reaction Status Date / Time codeine [Codeine] Allergy Mild Rash Verified 12/08/20 16:11 Review of Systems - Constitutional Constitutional: reports: Fatigue (worsening), Weakness, Weight stable (uses both blended food 2 x a day; supplement 4 x; 1 liter water) - Eyes Eyes: reports: Vision loss - Ears, Nose & Throat Ears, Nose & Throat: reports: Ear pain (mild), Nasal congestion, Hoarseness (worsening), Dental decay (recent removal of 3 teeth) - Cardiovascular Cardiovascular: reports: Lightheadedness, Exertional dyspnea, Decr. exercise tolerance - Respiratory Respiratory: reports: Cough, SOB with exertion. denies: Hemoptysis, SOB at rest - Gastrointestinal Gastrointestinal: reports: Constipation (intermittent). denies: Nausea, Reflux/heartburn - Genitourinary Genitourinary: reports: Frequency - Musculoskeletal Musculoskeletal: reports: Stiffness, Muscle weakness - Integumentary Integumentary: reports: Rash (mostly controlled; faded pink scarred areas; tender spot still on back), Dryness - Neurological Neurological: reports: General weakness, Dizziness, Memory problems - Psychiatric Psychiatric: reports: Anxiety (regarding pain and situation). denies: Depression - Endocrine Endocrine: reports: Hypothyroidism - Hematologic/Lymphatic Hematologic/Lymph: reports: Bruising. denies: Recurrent infections - All Other Systems All Other Systems: reports: Reviewed and negative Physical Exam - Vital Signs Temperature: 97.2 C Pulse Rate: 78 Respiratory Rate: 18 O2 Saturation: 98 Blood Pressure: 122/78 - Physical Exam General Appearance: positive: No acute distress, Alert Eyes Bilateral: positive: Normal inspection ENT: positive: Other (large amount of oral secretions; suspect oral candidiasis as thickened white patchy area back of pharynx and scattered area of tongue) Neck: positive: Trachea midline, Stiff neck (limited ROS with right radical neck), Other (mild tender area of swelling left neck area; noted right neck dissection scarred area) Cardiovascular: positive: Regular rate & rhythm Respiratory: positive: Diminished throughout. negative: Wheezes, Rales, Rhonchi Abdomen: positive: Non-tender, Nml bowel sounds, Distended Skin: positive: Pallor, Dryness, Bruising, Rash, Other (scabbed area of 4 cm distal from JT; reports is from drainage; improved) Extremities: positive: No pedal edema Neurologic/Psychiatric: positive: Oriented x3, Weakness, Slurred/abnml speech (mechanical; voice hoarse), Flat affect Palliative Care - POLST Patient has POLST: No POLST Status: Full Code Pain: Location (left jaw starting "up";), Severity (2/10), Comment (had relief over last 24 hours) Anxiety: Moderate (4-6) Feelings of wellbeing/Perceived Quality of Life: Fair, Worsening Sleep: Sleeps poorly (up every 2-3 hours to manage secretions) Performance Status: Patient is ambulatory, his bedroom is on the top floor which is very difficult for the . She is afraid he is going to have a fall. He does his own take J- tube feedings, medications, and suctioning. He has been much more sedentary, sleeping more. - Palliative Care Discussion: Lengthy discussion regarding several things, including patient's response at ED. Most likely not allergic response to the fentanyl, but did get a good response from the high-dose Decadron and Toradol as well as humidifier for managing and clearing secretions. We discussed at length Toradol is not a long-term pain management option, and it puts him at high risk for bleed already on Xarelto and prednisone, patient very much dislikes Xarelto and has wanted to quit it. Patient has a fairly significant history with original diagnosis of PE 01/28 on a CAT scan, but had also developed a clot in his left calf. He has had several falls that have rendered him quite black and blue. He dislikes the nosebleeds and the easily bruising. Counseling provided regarding patients with cancer and history of clots, high risk for recurrent clots which include stroke. We revisited this quite thoroughly again, as he has had the same conversation with his PCP. At this point in time he has agreed to continue There is much frustration and question now with the high-dose Decadron is it inflammation and possibly the pain in throat is his bullous pemphigoid, is distressed unable to get a biopsy, and concern for high risk for surgery. Patient does not want a trach, though with his worsening breathing problems secretion problems and issues this may become necessary. He would like to delay this as long as possible, and both he and his feel like if they had more definitive answer regarding the "mass" on his left side of his throat, they would be better able to plan or make decisions. They are quite frustrated with their interaction with the last surgeon who looked, did encourage could look for a second opinion. This does not mean they have to act on anything or get a biopsy, but could feel more confident in the information they are receiving.Hina would like to reach out first to the supervisor assembly department before kannan ng forward with the request for second opinion. Patient does understand the seriousness of his illness, though is wanting to do what he can to extend both his quality and quantity of life, he is not ready to "give up". He has lived with this a long time, and is having difficulty remembering and processing information's with his mild cognitive deficits. This is quite frustrating for Hina the , as she feels like medical persons do not understand the dynamic of his memory and ability to participate in decision making, she has completed a DPOA for health care. Impression and Recommendations - Palliative Care Impression: This is a 71-year-old gentleman with recurrent oropharyngeal cancer, with worsening pain, with concern for new disease in left pharyngeal area. Patient had been trialed on fentanyl patch, unclear if had localized reaction, but was not essentially effective. Patient did end up in ED, with worsening pain, difficulty with secretions, and hoarse voice. Palliative care meeting with patient and to address pain and symptom management needs, anticipatory guidance, and psychosocial support Recommendations/Counseling Done: 1. Pain of neoplastic origin. Had initiated fentanyl 12 mcg patch, with oxycodone for breakthrough pain, had managed due to patch changes, patient got anxious and felt he was having "an allergic reaction", with difficulty throat closing. On admit to ED, had received large dose of Decadron and Toradol with relief of both pain and respiratory issues, including received for several hours humidified oxygen allowing for him to clear his secretions better. He is having increased trouble with them, they are not at a place he can suction, and is having more difficulty coughing them up. Patient was discharged on Toradol short-term, reviewed this is contraindicated with his Xarelto and his prednisone, which led to discussions regarding his continued need for anticoagulation. Patient today presents with only mild pain in his left temporal area, at this point in time will initiate acetaminophen 1000 mg 3 times daily, he may use the oxycodone 5 to 10 mg every 3 hours as needed though does not perceive the narcotic helps much. We discussed prednisone is similar to the dexamethasone, he just got a very high dose, and he is too high risk to add an NSAID to. Because patient crushes meds and puts in J-tube, he is not a candidate for long- acting formulation. Which is why the fentanyl was initiated to begin with, will restart with APAP and oxycodone and see how patient's pain develops in the context of treating other symptoms. 2. Oral candidiasis. Patient is used nystatin in the past, has not found it effective which I can appreciate as he has significant oral secretions and would not be in contact with mucous membranes. Will go ahead and order Diflucan 100 mg to take on arrival, and repeat in 3 days. Will see if this improves. 3. Cough. Patient is having marked difficulty clearing his respiratory secretions, patient does have Mucomyst which is used in the past, with a goal to thin secretions to better manage. Instructed patient to initiate twice daily, as well as in between use normal saline with nebulizer 2-3 times a day. Suspect some of the pain and discomfort is coming from his cough effort and dried secretions. 4. Recurrent oropharyngeal squamous cell carcinoma. Patient and quite frustrated with the current situation, had understood regarding high risk for biopsy, but now given his ED visit, wondering about if it is his bullous pemphigoid. Patient may be at high risk for need of trach anyway to manage his breathing and secretions, discussion regarding goals around this. Patient would like to avoid as long as possible, but would except for respiratory status. Unfortunately it is quite anxiety producing for both patient and with his worsening status, communication issues, and now difficulty and concerns regarding pain management. Will reach out to oncology team for further direction, reassured patient will continue to work on his pain management, will just need to find the right combination.Recurrent oropharyngeal squamous cell carcinoma. Patient and quite frustrated with the current situation, had understood regarding high risk for biopsy, but now given his ED visit, wondering about if it is his bullous pemphigoid. Patient may be at high risk for need of trach anyway to manage his breathing and secretions, discussion regarding goals around this. Patient would like to avoid as long as possible, but would except for respiratory status. Unfortunately it is quite anxiety producing for both patient and with his worsening status, communication issues, and now difficulty and concerns regarding pain management. Will reach out to oncology team for further direction, reassured patient will continue to work on his pain management, will just need to find the right combination. 5. Advanced care planning. Both patient and with high anxiety regarding uncertain future, worried about future decline. is feeling overwhelmed with multiple issues and advocating for patient. Reviewed resources, patient currently independent in his ADLs, but at time has functional decline can look at [place] PES for further assistance. Will offer [employer] when available from palliative care team. 60 minutes with greater than 50% of this done in counseling regarding pain and symptom management, coordination of care, management of secretions, and anticipatory guidance.
== END 2021-05-17 11:46 | disposition home or self-care (01) ==
LOC: PC 11:45
PROVIDERS: ATTEND Nurse Practitioner Adult Health
DX: Z51.5 Encounter for palliative care (principal); G89.3 Neoplasm related pain (acute) (chronic); C10.9 Malignant neoplasm of oropharynx, unspecified; B37.0 Candidal stomatitis; R05 Cough; Z93.1 Gastrostomy status
CPT/HCPCS: 99350